=== PATIENT | male | born 1960 ===

== ENCOUNTER 2025-10-26 20:55 | Inpatient (IN) ==
[2025-10-26 21:55] LABS: HCT - HEMATOCRIT 49.8 % (42.0-52.0); HGB - HEMOGLOBIN 16.7 g/dL (14.0-18.0); MEAN PLATELET VOLUME 10.1 fL (7.4-11.4); NRBC ABSOLUTE COUNT (AUTO) 0.00 x10^3/uL; NUCLEATED RED BLOOD CELLS AUTO 0.0 /100WBC; PLT - PLATELET COUNT 186 10^3/uL (130-450); RED CELL DISTRIBUTION WIDTH 12.7 % (12.0-15.0)
[2025-10-26 22:11] LABS: ALT ALANINE AMINOTRANSFERASE 86 IU/L (10-60); AST ASPARTATE AMINOTRANSFERASE 158 IU/L (10-42); BUN - BLOOD UREA NITROGEN 13 mg/dL (6-20); CARBON DIOXIDE - CO2 25 mmol/L (21-32); CREATININE 0.9 mg/dL (0.6-1.3); GFR - MDRD 85 (>89)
[2025-10-26] MEDS: ONDANSETRON 4 MG/2 ML VIAL IVP STA (22:17)
[2025-10-26] MEDS: SODIUM CHLORIDE 0.9% 1,000 ML IV STA (22:21)
[2025-10-26] MEDS: ACETAMINOPHEN 325 MG TABLET PO STA (22:35)
--- NOTE | 2025-10-26 22:50 | ED Physician Documentation ---
History of Present Illness Stated complaint Stated Complaint: N/V/ABD PX Chief complaint Chief Complaint: General History obtained from History obtained from: Patient and Family History of Present Illness Pain level max: 10 Pain level now: 10 Additonal information Additional information: Patient is a 65-year-old male, history of diabetes, presents to the emergency department with sudden onset of epigastric abdominal pain that started at about 13:00 today, has gradually worsened throughout the day. Denies cramping, bloating, nausea, vomiting. Feels like there is a lot of pressure in his abdomen. Has not had similar symptoms previously. His only medication is metformin at home for diabetes. No abdominal surgeries. Does not smoke or drink. Nothing makes it better or worse. No alcohol. Does not smoke. No drug use. Review of Systems Constitutional Denies: Fever or Chills Cardiovascular Denies: chest pain or palpitations Respiratory Denies: Cough Meds/Allgy Allergies Allergies Allergy/AdvReac Type Severity Reaction Status Date / Time aspirin Allergy swelling Verified 10/26/25 21:03 morphine Allergy Itching Verified 10/26/25 21:03 Penicillins Allergy fever Verified 10/26/25 21:03 PFSH Active Problems All Active Problems (Updated 10/26/25 @ 23:56 by Virgilio Sanders MD) Pancreatitis (Acute) Rotator cuff tear, right (Acute) Rotator cuff tear, left (Acute) Rotator cuff impingement syndrome (Acute) Medical History Medical History (Updated 10/26/25 @ 23:56 by Virgilio Sanders MD) No pertinent past medical history Social History Social History (Updated 04/30/25 @ 10:30 by Danilo Skinner DO) Do you feel safe in your home environment?: Yes History of physical, verbal, emotional, or financial abuse?: No Exam Exam Vital Signs: Vital Signs x48h Temp Pulse Resp BP Pulse Ox 10/26/25 23:06 122 H 18 146/89 H 95 10/26/25 21:04 36.5 C 117 H 16 162/128 H 94 Constitutional normal general appearance Patient appears in pain HENMT oropharynx normal moist mucous membranes Eyes PERRL Neck/C-Spine visual inspection normal Respiratory breath sounds equal bilaterally, normal respiratory effort and clear to auscultation bilaterally Cardiovascular normal heart rate noted and regular rhythm noted Gastrointestinal abdomen normal to inspection, abdomen soft to palpation and nondistended Tender to palpation epigastric. No peritoneal signs Genitourinary no CVA tenderness Extremities no edema Neurology speech normal Psychiatry mental status grossly normal and oriented x3 Skin skin color normal Results Vitals Vitals: Vital Signs - 24 hr 10/26/25 21:04 10/26/25 22:35 10/26/25 23:01 Temperature 36.5 C Temperature Source Temporal Artery Scan Pulse Rate 117 H Respiratory Rate 16 Blood Pressure 162/128 H O2 Saturation 94 O2 Source Room air Pain Intensity 10 10 10 10/26/25 23:06 Temperature Temperature Source Pulse Rate 122 H Respiratory Rate 18 Blood Pressure 146/89 H O2 Saturation 95 O2 Source Pain Intensity Oxygen O2 Source Room air Labs Labs: Laboratory Tests 10/26/25 21:50 WBC 15.7 H RBC 5.84 Hgb 16.7 Hct 49.8 MCV 85.3 MCH 28.6 MCHC 33.5 RDW 12.7 Plt Count 186 MPV 10.1 Neut # (Auto) 12.7 H Lymph # (Auto) 1.8 [place] # (Auto) 1.1 H Eos # (Auto) 0.0 Baso # (Auto) 0.0 Absolute Nucleated RBC 0.00 Nucleated RBC % 0.0 Sodium 141 Potassium 3.5 Chloride 105 Carbon Dioxide 25 Anion Gap 11.0 BUN 13 Creatinine 0.9 Estimated GFR (MDRD) 85 L Glucose 252 H Calcium 9.4 Total Bilirubin 1.6 H AST 158 H ALT 86 H Alkaline Phosphatase 104 Total Protein 6.7 Albumin 4.7 Globulin 2.0 L Albumin/Globulin Ratio 2.4 H Lipase > 6000 H PD Medical Decision Making ED course Complexity details: reviewed results, re-evaluated patient, considered differential and d/w patient ED course: Patient with pancreatitis. Given IV fluids, Zofran, fentanyl. Ultrasound ordered. Radiology systems are down currently secondary to a power outage, IT is working on fixing this. Patient is signed out to Dr. Mcdonald for repeat evaluation, ultrasound results and likely admission to the hospital. This document was made in part using voice recognition software. While efforts are made to proofread this document, sound alike and grammatical errors may occur. Discharge Plan Discharge Clinical Impression: Pancreatitis Qualifiers: Chronicity: acute Pancreatitis type: unspecified pancreatitis type Acute pancreatitis complication: unspecified Qualified Code(s): K85.90 - Acute pancreatitis without necrosis or infection, unspecified Print Language: Panamanian Stand Alone Forms: PCP List, SBIRT
[2025-10-26] MEDS: fentaNYL 100 MCG/2 ML VIAL IVP STA (23:01)
[2025-10-27] MEDS: fentaNYL 100 MCG/2 ML VIAL IVP STA (00:07)
[2025-10-27 00:22] LABS: GLUCOSE, URINE (UA) >=1000 mg/dL (NEGATIVE); KETONES,URINE (UA) NEGATIVE (NEGATIVE); OCCULT BLOOD,URINE TRACE-INTACT (NEGATIVE)
--- NOTE | 2025-10-27 02:37 | ED Physician Documentation ---
ED Addendum Addendum Addendum: I received sign-out/turnover of care on this patient from Dr. Sanders; please see addendum for complete H&P. In brief, H&P, ROS, and test results are all indicative of idiopathic pancreatitis. Ultrasound performed during Dr. Sanders's shift was limited due to patient's body habitus and thus I ordered CT A/P with IV contrast. There was a delay in getting the CT undertaken/completed as well as obtaining radiologist's reading because of a hospital-wide power outage (which precluded ability to send images to radiologist for reading; eventually power was restored). CT read by radiologist as "extensive fat stranding surrounding duodenum consistent with duodenitis. A small focus of gas adjacent to the second portion of the duodenum could be within the distal common bile duct, although the biliary structures are otherwise unremarkable. Other possibilities include a small duodenal diverticulum and, less likely, duodenal ulcer. No evidence of perforation is suspected. Mild fat stranding surrounding the pancreatic tissue also raises the possibility of acute pancreatitis. No pseudocyst or other complication identified." Patient is given maintenance fluids on my overnight shift; I instructed him to not eat or drink anything. He required titration of IV Dilaudid for pain. I entered a [facility] tele[facility] consult request at 04:12. Not having heard from them, I reentered a [facility] tele[facility] consult request via amplify at 05:30. I still did not hear from the sound telehealth practitioner by the end of my shift and thus care patient is turned over to oncoming ED physician (Dr. Smith) who can hopefully discuss the case with the in-Hospital hospitalist when they come on after 7 AM Discharge Plan Discharge Patient Disposition: 66 [facility] DC/Xfer Condition: Stable Clinical Impression: Pancreatitis Qualifiers: Chronicity: acute Pancreatitis type: unspecified pancreatitis type Acute pancreatitis complication: unspecified Qualified Code(s): K85.90 - Acute pancreatitis without necrosis or infection, unspecified Print Language: Sierra Leonean
[2025-10-27] MEDS: SODIUM CHLORIDE 0.9% 1,000 ML IV STA (02:58)
[2025-10-27] MEDS: HYDROmorphone 1 MG/ML CARPUJECT IVP STA ×4 (02:58→10:01)
[2025-10-27 07:58] LABS: HCT - HEMATOCRIT 48.6 % (42.0-52.0); HGB - HEMOGLOBIN 15.9 g/dL (14.0-18.0); MEAN PLATELET VOLUME 9.9 fL (7.4-11.4); NRBC ABSOLUTE COUNT (AUTO) 0.00 x10^3/uL; NUCLEATED RED BLOOD CELLS AUTO 0.0 /100WBC; PLT - PLATELET COUNT 158 10^3/uL (130-450); RED CELL DISTRIBUTION WIDTH 13.0 % (12.0-15.0)
[2025-10-27 08:19] LABS: ALT ALANINE AMINOTRANSFERASE 84 IU/L (10-60); AST ASPARTATE AMINOTRANSFERASE 71 IU/L (10-42); BUN - BLOOD UREA NITROGEN 11 mg/dL (6-20); CARBON DIOXIDE - CO2 28 mmol/L (21-32); CHOL/HDL RATIO 2.2 (<5.0); CREATININE 0.8 mg/dL (0.6-1.3); ETOH - ETHANOL < 10.0 mg/dL; GFR - MDRD 97 (>89); LDL/HDL RATIO 0.9 (<3.6); VLDL CHOLESTEROL 13 mg/dL
--- NOTE | 2025-10-27 09:06 | HISTORY & PHYSICAL EXAMINATION ---
Chief Complaint Chief Complaint Chief Complaint: Abdominal pain History of Present Illness Admitted From Admitted From:: Home History Obtained From Records Reviewed: EMR History obtained from: Patient Exam Limitations: None History of Present Illness HPI Comment/Other: Patient is a 65-year-old male with a history of [id number] diabetes mellitus, hypertension who presents with acute abdominal pain. Yesterday, he was at work at the [employer], when he felt a sharp abdominal pain. He had eaten out for lunch so he attributed initially to food poisoning. He described it as feeling like there was gas in his stomach, and he did his best to push it out. The abdominal pain progressed, and he went home early from work. He initially attributed to his GERD, which he has a longstanding history of, and takes omeprazole for. He drank some [place], and then gave himself an enema with minimal relief. He then progressed to having nausea and about 7 episodes of nonbilious, nonbloody emesis. This morning, the pain had worsened, so he came in. On admission, patient was hypertensive with blood pressure 162/128, he was saturating 94% on room air, respiratory rate was 16, he was tachycardic with heart rate up to 117, and afebrile at 97.5. Lab work was reviewedhe has a leukocytosis of 15.7. BMP was largely unremarkable. AST and ALT were mildly elevated yesterday, but are improved this morning 1 58-71, and 86-84 respectively. His bilirubin was elevated yesterday 1.6, and it is 0.9 today. UA was negative, ethyl alcohol level is negative. Triglycerides are within normal limit. Abdominal ultrasound showed no gallstones, but a mildly prominent common duct. In abdomen/pelvis CT showed acute pancreatitis, and duodenitis involving the 2nd and 3rd portions of the duodenum with a possible microperforation with a single locule of air present subadjacent to the second portion of the duodenum. He was admitted for the above. General surgery was consulted. Past medical history includes hypertension, diabetes, GERD. Home medications include omeprazole, Jardiance, metformin, and 2 antihypertensives that patient is unsure of. Patient is allergic to morphine, aspirin, penicillin, unclear reaction. Surgical history includes appendectomy as a child. He denies any alcohol, tobacco, recreational drug use. 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 He works in [employer] services at the [employer]. He lives with his and 2 kids. He is normally active. Patient would like to be full code, with continued aggressive medical management at this time. Meds/Allgy Home Medications Ambulatory Orders Medication Instructions Recorded Confirmed albuterol 90 mcg/actuation aerosol 90 mcg inhalation T ID-QID PRN 10/27/25 10/27/25 inhaler Asthma atorvastatin 10 mg tablet (Lipitor) 10 mg PO DAILY 10/27/25 cholecalciferol (vitamin D3) 25 25 mcg PO DAILY 10/27/25 mcg (1,000 unit) capsule empagliflozin 25 mg tablet 25 mg PO DAILY 10/27/25 lidocaine 5 % topical ointment 1 applic topical BID NC N pain 10/27/25 10/27/25 losartan 25 mg tablet 25 mg PO DAILY 10/27/2510/05 magnesium gluconate 12.5 mg 12.5 mg PO QPM PRN cramps 10/27/25 10/27/25 magnesium (250 mg) tablet meloxicam 15 mg tablet 15 mg PO DAILY 10/27/2510/05 metformin 1,000 mg tablet 1,000 mg PO BID 10/27/25 metoprolol succinate 100 mg 50 mg PO BID PRN HR<65 or BP<100 10/27/25 10/27/25 tablet,extended release 24 hr omeprazole 20 mg capsule,delayed 20 mg PO QPM 10/27/25 10/27/25 release Allergies Allergies Allergy/AdvReac Type Severity Reaction Status Date / Time aspirin Allergy swelling Verified 10/26/25 21:03 morphine Allergy Itching Verified 10/26/25 21:03 Penicillins Allergy fever Verified 10/26/25 21:03 [facility] Active Problems All Active Problems (Updated 10/27/25 @ 14:45 by Candi Flores MD) GERD (gastroesophageal reflux disease) (Acute) Leukocytosis (Acute) Acute abdominal pain (Acute) Duodenal ulcer, perforated (Acute) Duodenitis (Acute) Hx of appendectomy (Acute) Diabetes mellitus (Chronic) Hypertension (Chronic) Pancreatitis (Acute) Rotator cuff tear, right (Acute) Rotator cuff tear, left (Acute) Rotator cuff impingement syndrome (Acute) Medical History Medical History No pertinent past medical history Social History Social History Smoking Status: Former smoker If you are a former smoker, when did you quit? (Date/Year): 1996 Number of Years Smoked: 12 How many cigarettes a day do you smoke? (20 cigarettes=1 Pk): 20 Second hand tobacco smoke exposure: Yes Do you dip or chew tobacco?: No Do you vape?: No Patient requests smoking cessation consult: No Initiate information on smoking cessation: No Level: Independent Do you feel safe in your home environment?: Yes History of physical, verbal, emotional, or financial abuse?: No Substance Use: denies use POLST Patient has POLST: No POLST on file?: No POLST CPR Status: Attempt Resuscitation (CPR) Level of Medical Intervention: Full Treatment Review of Systems Constitutional Reports: Fatigue, Malaise and Weakness; Denies: Fever, Chills or Poor appetite Eyes Denies: Pain, Irritation, Blurry vision or Vision loss Ears, nose, mouth, and throat Denies: Ear pain, Hearing loss or Tinnitus Cardiovascular Denies: Irregular heart rate, chest pain, Syncope, shortness of breath with exertion or shortness of breath when lying down Respiratory Denies: Shortness of breath, Cough or Sputum production Gastrointestinal Reports: Abdominal pain, Abdominal distention, Nausea, Vomiting and Bloating; Denies: Heartburn, Diarrhea or Constipation Genitourinary Denies: Painful urination, Urinary frequency or Urinary urgency Musculoskeletal Denies: Back pain, Extremity pain, Extremity swelling or Joint pain Integumentary/Breast Denies: Rash, Itching, Dryness, Redness or Skin pain Neurological Reports: General weakness; Denies: Headache, Weakness in extremities, Numbness in extremities or Abnormal gait Psychiatric Denies: Depression, Anxiety, Mood swings or Panic attacks Endocrine Reports: Fatigue; Denies: Excessive urination Hematologic/Lymphatic Denies: Anemia, Easy bruising or Easy bleeding Allergic/Immunologic Denies: Hives Prior Level of Functionality: Independent of ADLs. Exam Exam Vital Signs: Vital Signs x48h Temp Pulse Pulse Resp BP BP Pulse Ox 10/27/25 12:34 123 H 154/88 H 10/27/25 10:15 97.5 F L 111 H 20 177/111 H 99 10/27/25 10:09 98.1 F 90 18 165/99 H 96 10/27/25 09:20 101 H 18 165/99 H 96 10/27/25 07:44 104 H 20 155/99 H 99 O2 Flow Rate 10/27/25 12:34 10/27/25 10:15 10/27/25 10:09 10/27/25 09:20 10/27/25 07:44 2 Intermittently appears in distress due to abdominal pain. Constitutional normal general appearance, distress noted (mild) and (moderate), abnormal body habitus (overweight) and no limitations HENMT normocephalic and head/scalp atraumatic Eyes PERRL, EOMs intact bilaterally and conjunctivae normal Chest inspection of chest normal Respiratory breath sounds equal bilaterally, normal respiratory effort, clear to auscultation bilaterally, no wheezes, no rales and no retractions Cardiovascular heart rate abnormal (tachycardic), regular rhythm noted, no gallop, no rub and no murmur Gastrointestinal abdomen abnormal to inspection (Protuberant ), abdomen soft to palpation, tender to palpation (moderate) and (epigastric), abnormal bowel sounds noted (hyperactive bowel sounds), no hepatosplenomegaly and no masses No rebound tenderness, no guarding or rigidity. Genitourinary no CVA tenderness Back/Pelvis spine normal to inspection Extremities normal to inspection, normal to palpation, no tenderness and full ROM Neurology no movement abnormality noted and no focal motor deficit noted Psychiatry mental status grossly normal, oriented x3, thought process normal, cooperative and affect normal Skin skin color normal, no rash, no lesions and no wounds Conclusion/Plan Problem List (1) Acute abdominal pain: (2) Duodenitis: (3) Duodenal ulcer, perforated: (4) Pancreatitis: Plan: The following plan is for the above 4 diagnoses: Patient presents with acute abdominal pain. Describes it as severe, epigastric with associated nausea and vomiting. He gave himself an enema, and had small bowel movement yesterday. Last passed gas yesterday as well. CT abdomen/pelvis shows duodenitis involving the 2nd and 3rd portions of duodenum, as well as a possible microperforation, as well as changes of acute pancreatitis. Unclear reason for pancreatitis. Patient does not drink, no gallstones visible on abdominal ultrasound although there is a slight dilation in the common bile duct. Bilirubin negative, and LFTs have been downtrending. Triglycerides normal. No new medications. Likely iatrogenic. Continue aggressive IV fluid rehydration. Pain control with IV Dilaudid. General surgery consulted for microperforation, discussed patient, they will evaluate; appreciate recommendations. Qualifiers: Acute pancreatitis complication: unspecified Chronicity: acute P ancreatitis type: unspecified pancreatitis type Qualified Code(s): K85.90 - Acute pancreatitis without necrosis or infection, unspecified (5) Leukocytosis: Plan: Likely reactive to above. Continue Rocephin and Flagyl at this time for perforated ulcer. Blood cultures ordered. Qualifiers: Leukocytosis type: unspecified Qualified Code(s): D72.829 - Elevated white blood cell count, unspecified (6) Diabetes mellitus: Plan: Continue low-dose sliding scale, n.p.o. status. Qualifiers: Diabetes mellitus complication status: without complication Diabetes mellitus detention insulin use: without detention use Diabetes mellitus type: o ther specified (including KWADWO) Qualified Code(s): E13.9 - Other specified diabetes mellitus without complications (7) Hypertension: Plan: Continue to monitor. Qualifiers: Hypertension type: unspecified Qualified Code(s): I10 - Essential (primary) hypertension (8) GERD (gastroesophageal reflux disease): Plan: Longstanding history of GERD, currently on omeprazole. States he had a EGD about 10 years ago, unsure of what the results were. Qualifiers: Esophagitis presence: esophagitis presence not specified Qualified Code(s): K21.9 - Gastro-esophageal reflux disease without esophagitis Lab Results Lab results reviewed: Yes 10/27/25 07:51 10/27/25 07:51 Diagnostic Imaging Results Diagnostic Imaging Results: positive Final report reviewed Core Measures Anticipated LOS I expect patient to be DC'd or transferred within 96 hours.: Yes DVT/VTE - Prophylaxis VTE/DVT Device ordered at admit?: No VTE/DVT Prophylaxis med ordered at admit?: Yes Stroke - Rehab Assessment Rehab services assessment to be ordered?: No Not Ordered - Medical Reason: Not indicated AMI - Statin at Admit Aspirin Prescribed on Admit: No Not Ordered - Medical Reason: Not indicated
[2025-10-27] MEDS: LACTATED RINGERS 1,000 ML IV STA (09:15)
--- NOTE | 2025-10-27 09:28 | Ultrasound Report ---
PROCEDURE: US Abdomen Limited INDICATIONS: pancreatitis TECHNIQUE: Real-time focused scanning was performed of the abdomen, with image documentation. COMPARISONS: None. FINDINGS: Liver: Liver is normal in size and somewhat coarsened in echotexture. Gallbladder: No gallstones, sludge, wall thickening or pericholecystic edema. Biliary ducts: Intrahepatic bile ducts are non-dilated. Extrahepatic bile duct caliber measures 8.4 mm. Normal is 6-7 mm or less in diameter, or 10 mm or less post-cholecystectomy. Pancreas: Not well visualized due to overlying bowel gas. Right kidney: Normal in size and echotexture. Right kidney measures 10.5 cm long. No hydronephrosis or nephrolithiasis. No solid masses. No complex renal cystic lesions which require follow-up. IVC: Intrahepatic inferior vena cava is patent. Miscellaneous: No free abdominal fluid. IMPRESSION: 1. No gallstones noted. 2. Mildly prominent common duct. Reviewed by: Rios Marmolejo MD on 10/27/2025 9:25 AM PST Approved by: Rios Marmolejo MD on 10/27/2025 9:25 AM PST Station ID: [id number]
--- NOTE | 2025-10-27 09:41 | CT Report ---
PROCEDURE: CT Abdomen/Pelvis W INDICATIONS: suspect pancreatitis CONTRAST: 100cc [id number] TECHNIQUE: After the administration of intravenous contrast, a CT scan of the abdomen and pelvis was performed. Images were recorded and evaluated at appropriate window settings. Reformats: coronal and sagittal. For radiation dose reduction, the following was used: automated exposure control, adjustment of mA and/or kV according to patient size. COMPARISON: None. FINDINGS: Image quality: Diagnostic. Lower chest: Unremarkable. Liver: No solid mass. Gallbladder: No radiopaque stones or wall thickening. Biliary tree: No intrahepatic or extrahepatic dilation, accounting for age. Spleen: No splenomegaly. Pancreas: Peripancreatic stranding in the adjacent fat with mild edematous change of the pancreas consistent with acute pancreatitis. No pancreatic necrosis identified.. Adrenals: No adrenal nodule. Kidneys and ureters: No hydronephrosis. No renal cystic lesion which requires follow up. No solid mass. Stomach, bowel and peritoneum: No gastric dilatation. There is inflammatory change involving the second portion of the duodenum as well as the third portion of the duodenum. This may be secondary to acute pancreatitis. There is a locule of air present outside of the second portion of the duodenum in the region of the uncinate process of the pancreas. It appears to be adjacent to, but not in the common duct. Consider microperforation small bowel otherwise unremarkable mild diverticulosis. No acute diverticulitis. Normal appendix.. No pathologic free fluid. Lymph nodes: No central or retroperitoneal adenopathy. Vessels: No infrarenal aortic aneurysm. Patent portal vein. PELVIS Reproductive organs: Unremarkable. Bladder: No abnormal wall thickening. Pelvic lymph nodes: No pelvic adenopathy by size criteria. Bones: No aggressive osseous abnormality. Other: No significant ventral or inguinal hernia. IMPRESSION: 1. Mild changes of acute pancreatitis. 2. Duodenitis involving the second and third portions of the duodenum, potentially secondary to pancreatitis. 3. Possible microperforation with a single locule of air present subjacent to the second portion of the duodenum in the region of the uncinate process of the pancreas. Comment: Consider follow-up studies based on future symptomatology. Findings are concordant with preliminary interpretation provided by [facility]. Reviewed by: Rios Marmolejo MD on 10/27/2025 9:37 AM PST Approved by: Rios Marmolejo MD on 10/27/2025 9:37 AM PST Station ID: [id number]
[2025-10-27] MEDS ORDERED: ONDANSETRON ODT 4 MG TABLET TL PRN (10:25)
[2025-10-27] MEDS: HYDROmorphone 0.5 MG/0.5 ML SYRINGE IVP PRN (10:35)
[2025-10-27] MEDS: HYDROcod/ACETAM 5/325 MG TABLET PO PRN (10:36)
[2025-10-27] MEDS: HYDROmorphone 2 MG/ML VIAL IVP PRN (11:17)
[2025-10-27] MEDS: PANTOPRAZOLE 40 MG VIAL IVP SCH (12:22)
[2025-10-27] MEDS: INSULIN REGULAR, HUMAN 300 UNIT/3 ML PEN SUBQ SCH (12:34)
[2025-10-27] MEDS: SIMETHICONE CHEW 80 MG TABLET PO PRN (12:38)
[2025-10-27] MEDS: INSULIN LISPRO 300 UNIT/3 ML PEN SUBQ SCH (13:33)
[2025-10-27] MEDS: LACTATED RINGERS 1,000 ML IV SCH (13:35)
[2025-10-27] MEDS ORDERED: IPRATROPIUM/ALBUTEROL 3 ML NEB INH PRN (16:28)
[2025-10-27] MEDS ORDERED: HYDROmorphone 2 MG/ML VIAL IVP PRN (16:29)
--- NOTE | 2025-10-27 16:56 | XRAY Report ---
PROCEDURE: XR Chest 1V INDICATIONS: ASIYA, hypoxia TECHNIQUE: One view of the chest was acquired. COMPARISON: CT abdomen pelvis on 10/27/2025 FINDINGS: Surgical changes and devices: None. Lungs and pleura: Bilateral diffuse airspace opacities. No pneumothorax. Trace bilateral pleural effusions Mediastinum: Mildly enlarged mediastinal silhouette with opacities partially scaring the mediastinal borders. Bones and chest wall: No suspicious bony lesions. Overlying soft tissues appear unremarkable. IMPRESSION: Bilateral diffuse airspace opacities with trace bilateral pleural effusions. Findings are concerning for pulmonary edema versus multifocal pneumonia. Reviewed by: Chance Polanco MD on 10/27/2025 4:53 PM PST Approved by: Chance Polanco MD on 10/27/2025 4:53 PM PST Station ID: [id number]
--- NOTE | 2025-10-27 17:14 | CONSULTATION NOTE ---
Referring Provider Name of Referring Provider:: Dr. Candi Flores Consult Date: 10/27/25 Chief Complaint Chief Complaint Chief Complaint: Pancreatitis with questionable duodenal perforation History of Present Illness Admitted From Admitted From:: Home History Obtained From Records Reviewed: Yes History obtained from: Patient and chart Exam Limitations: Patient's somnolence History of Present Illness HPI Comment/Other: The patient is a 65-year-old male evaluated in room 2204 at [facility]'s MedSurg unit at the request of Dr. Candi Flores. 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 The pain was associated with nausea and vomiting but not with constipation or diarrhea. The patient denies melena, hematochezia, or hematemesis. Importantly, the patient stopped drinking alcohol 35 years ago. The patient states that he has never had this pain previously. When he did vomit it was the lunch that he had which was a ham and cheese omelette. [facility] Active Problems All Active Problems (Updated 10/27/25 @ 14:45 by Candi Flores MD) GERD (gastroesophageal reflux disease) (Acute) Leukocytosis (Acute) Acute abdominal pain (Acute) Duodenal ulcer, perforated (Acute) Duodenitis (Acute) Hx of appendectomy (Acute) Diabetes mellitus (Chronic) Hypertension (Chronic) Pancreatitis (Acute) Rotator cuff tear, right (Acute) Rotator cuff tear, left (Acute) Rotator cuff impingement syndrome (Acute) Medical History Medical History No pertinent past medical history Social History Social History (Updated 10/27/25 @ 14:46 by Candi Flores MD) Smoking Status: Former smoker If you are a former smoker, when did you quit? (Date/Year): 1996 Number of Years Smoked: 12 How many cigarettes a day do you smoke? (20 cigarettes=1 Pk): 20 Second hand tobacco smoke exposure: Yes Do you dip or chew tobacco?: No Do you vape?: No Patient requests smoking cessation consult: No Initiate information on smoking cessation: No Level: Independent Do you feel safe in your home environment?: Yes History of physical, verbal, emotional, or financial abuse?: No Substance Use: denies use POLST Patient has POLST: No POLST on file?: No POLST CPR Status: Attempt Resuscitation (CPR) Level of Medical Intervention: Full Treatment Meds/Allgy Home Medications Ambulatory Orders Medication Instructions Recorded Confirmed albuterol 90 mcg/actuation aerosol 90 mcg inhalation T ID-QID PRN 10/27/25 10/27/25 inhaler Asthma atorvastatin 10 mg tablet (Lipitor) 10 mg PO DAILY 10/27/25 cholecalciferol (vitamin D3) 25 25 mcg PO DAILY 10/27/25 mcg (1,000 unit) capsule empagliflozin 25 mg tablet 25 mg PO DAILY 10/27/25 lidocaine 5 % topical ointment 1 applic topical BID DE N pain 10/27/25 10/27/25 losartan 25 mg tablet 25 mg PO DAILY 10/27/2510/05 magnesium gluconate 12.5 mg 12.5 mg PO QPM PRN cramps 10/27/25 10/27/25 magnesium (250 mg) tablet meloxicam 15 mg tablet 15 mg PO DAILY 10/27/2510/05 metformin 1,000 mg tablet 1,000 mg PO BID 10/27/25 metoprolol succinate 100 mg 50 mg PO BID PRN HR<65 or BP<100 10/27/25 10/27/25 tablet,extended release 24 hr omeprazole 20 mg capsule,delayed 20 mg PO QPM 10/27/25 10/27/25 release Allergies Allergies Allergy/AdvReac Type Severity Reaction Status Date / Time aspirin Allergy swelling Verified 10/26/25 21:03 morphine Allergy Itching Verified 10/26/25 21:03 Penicillins Allergy fever Verified 10/26/25 21:03 Results Lab Results Lab results reviewed: Yes 10/27/25 07:51 10/27/25 07:51 Other Lab Results: Lab Results x24hrs 10/27/25 10/27/25 10/27/25 Range/Units 12:32 07:51 00:11 WBC 15.7 H (4.8-10.8) x10^3/uL RBC 5.58 (4.70-6.10) 10^6/uL Hgb 15.9 (14.0-18.0) g/dL Hct 48.6 (42.0-52.0) % MCV 87.1 (80.0-94.0) fL MCH 28.5 (27.0-31.0) pg MCHC 32.7 (32.0-36.0) g/dL RDW 13.0 (12.0-15.0) % Plt Count 158 (130-450) 10^3/uL MPV 9.9 (7.4-11.4) fL Neut # (Auto) 13.2 H (1.5-6.6) 10^3/uL Lymph # (Auto) 1.1 L (1.5-3.5) 10^3/uL Jefferson # (Auto) 1.2 H (0.0-1.0) 10^3/uL Eos # (Auto) 0.0 (0.0-0.7) 10^3/uL Baso # (Auto) 0.0 (0.0-0.1) 10^3/uL Absolute Nucleated RBC 0.00 x10^3/uL Nucleated RBC % 0.0 /100WBC Sodium 143 (135-145) mmol/L Potassium 4.1 (3.5-4.5) mmol/L Chloride 106 (101-111) mmol/L Carbon Dioxide 28 (21-32) mmol/L Anion Gap 9.0 (6-13) BUN 11 (6-20) mg/dL Creatinine 0.8 (0.6-1.3) mg/dL Estimated GFR (MDRD) 97 (>89) Glucose 174 H (74-104) mg/dL POC Whole Bld Glucose 141 (70-100) mg/dL Calcium 8.7 (8.5-10.3) mg/dL Total Bilirubin 0.9 (0.2-1.0) mg/dL AST 71 H (10-42) IU/L ALT 84 H (10-60) IU/L Alkaline Phosphatase 81 (42-121) IU/L Total Protein 6.4 (6.4-8.9) g/dL Albumin 4.4 (3.2-5.5) g/dL Globulin 2.0 L (2.1-4.2) g/dL Albumin/Globulin Ratio 2.2 (1.0-2.2) Triglycerides 66 mg/dL Cholesterol 99 ( - 200) mg/dL LDL Cholesterol, Calc 41 ( - 129) mg/dL VLDL Cholesterol 13 mg/dL HDL Cholesterol 45 L (60 - ) mg/dL LDL/HDL Ratio 0.9 (<3.6) Cholesterol/HDL Ratio 2.2 (<5.0) Lipase 2647 H (11-82) U/L Urine Color YELLOW Urine Clarity CLEAR (CLEAR) Urine pH 5.5 (5.0-7.5) PH Ur Specific [place] 1.010 (1.002-1.030) Urine Protein NEGATIVE (NEGATIVE) mg/dL Urine Glucose (UA) >=1000 H (NEGATIVE) mg/dL Urine Ketones NEGATIVE (NEGATIVE) mg/dL Urine Occult Blood TRACE-INTACT (NEGATIVE) Urine Nitrite NEGATIVE (NEGATIVE) Urine Bilirubin NEGATIVE (NEGATIVE) Urine Urobilinogen 0.2 (NORMAL) (NORMAL) E.U./dL Ur Leukocyte Esterase NEGATIVE (NEGATIVE) Ur Microscopic Review NOT INDICATED Urine Culture Comments NOT INDICATED Ethyl Alcohol < 10.0 mg/dL 10/26/25 Range/Units 21:50 WBC 15.7 H (4.8-10.8) x10^3/uL RBC 5.84 (4.70-6.10) 10^6/uL Hgb 16.7 (14.0-18.0) g/dL Hct 49.8 (42.0-52.0) % MCV 85.3 (80.0-94.0) fL MCH 28.6 (27.0-31.0) pg MCHC 33.5 (32.0-36.0) g/dL RDW 12.7 (12.0-15.0) % Plt Count 186 (130-450) 10^3/uL MPV 10.1 (7.4-11.4) fL Neut # (Auto) 12.7 H (1.5-6.6) 10^3/uL Lymph # (Auto) 1.8 (1.5-3.5) 10^3/uL [place] # (Auto) 1.1 H (0.0-1.0) 10^3/uL Eos # (Auto) 0.0 (0.0-0.7) 10^3/uL Baso # (Auto) 0.0 (0.0-0.1) 10^3/uL Absolute Nucleated RBC 0.00 x10^3/uL Nucleated RBC % 0.0 /100WBC Sodium 141 (135-145) mmol/L Potassium 3.5 (3.5-4.5) mmol/L Chloride 105 (101-111) mmol/L Carbon Dioxide 25 (21-32) mmol/L Anion Gap 11.0 (6-13) BUN 13 (6-20) mg/dL Creatinine 0.9 (0.6-1.3) mg/dL Estimated GFR (MDRD) 85 L (>89) Glucose 252 H (74-104) mg/dL POC Whole Bld Glucose (70-100) mg/dL Calcium 9.4 (8.5-10.3) mg/dL Total Bilirubin 1.6 H (0.2-1.0) mg/dL AST 158 H (10-42) IU/L ALT 86 H (10-60) IU/L Alkaline Phosphatase 104 (42-121) IU/L Total Protein 6.7 (6.4-8.9) g/dL Albumin 4.7 (3.2-5.5) g/dL Globulin 2.0 L (2.1-4.2) g/dL Albumin/Globulin Ratio 2.4 H (1.0-2.2) Triglycerides mg/dL Cholesterol ( - 200) mg/dL LDL Cholesterol, Calc ( - 129) mg/dL VLDL Cholesterol mg/dL HDL Cholesterol (60 - ) mg/dL LDL/HDL Ratio (<3.6) Cholesterol/HDL Ratio (<5.0) Lipase > 6000 H (11-82) U/L Urine Color Urine Clarity (CLEAR) Urine pH (5.0-7.5) PH Ur Specific [place] (1.002-1.030) Urine Protein (NEGATIVE) mg/dL Urine Glucose (UA) (NEGATIVE) mg/dL Urine Ketones (NEGATIVE) mg/dL Urine Occult Blood (NEGATIVE) Urine Nitrite (NEGATIVE) Urine Bilirubin (NEGATIVE) Urine Urobilinogen (NORMAL) E.U./dL Ur Leukocyte Esterase (NEGATIVE) Ur Microscopic Review Urine Culture Comments Ethyl Alcohol mg/dL Diagnostic Imaging Results Diagnostic Imaging Results: positive Final report reviewed and Read independently Review of Systems Status of ROS: 10 or more systems reviewed and unremarkable except as noted in history and below Exam Exam Vital Signs: Vital Signs x48h Temp Pulse Pulse Resp BP BP Pulse Ox 10/27/25 16:18 20 92 10/27/25 16:12 36.5 C 123 H 18 137/82 H 81 L 10/27/25 12:34 123 H 154/88 H 10/27/25 10:15 36.4 C L 111 H 20 177/111 H 99 10/27/25 10:09 36.7 C 90 18 165/99 H 96 10/27/25 09:20 101 H 18 165/99 H 96 O2 Flow Rate 10/27/25 16:18 3 10/27/25 16:12 10/27/25 12:34 10/27/25 10:15 10/27/25 10:09 10/27/25 09:20 General: 65-year old male, appears stated age, well developed, well nourished, quite somnolent and admits to being sleepy HEENT: Normocephalic, atraumatic, extraocular movement intact, mucous membranes pink and moist, sclera anicteric and not injected, tongue midline, Mallampati 1, junior and mustache Neck: Supple without pain on palpation, mass or bruit Cardiac: Regular rate and rhythm but tachycardic to 130 without rub, gallop, or murmur Chest: Clear to auscultation bilaterally anterolaterally Abdomen: Soft, protuberant, with positive bowel sounds, I could not appreciate any hepatosplenomegaly due to the protuberance. 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 Gait: Did not evaluate as I did not have the patient get out of bed Psychiatric: Alert and oriented to person place and time, asks and answers questions appropriately, mood and affect appropriate Conclusion/Plan Problem List (1) Acute abdominal pain: (2) Duodenitis: (3) Duodenal ulcer, perforated: (4) Pancreatitis: Qualifiers: Acute pancreatitis complication: unspecified Chronicity: acute P ancreatitis type: unspecified pancreatitis type Qualified Code(s): K85.90 - Acute pancreatitis without necrosis or infection, unspecified (5) Leukocytosis: Qualifiers: Leukocytosis type: unspecified Qualified Code(s): D72.829 - Elevated white blood cell count, unspecified (6) Diabetes mellitus: Qualifiers: Diabetes mellitus type: other specified (including KWADWO) Diabetes mellitus mcfp insulin use: without exterminator helper use Diabetes mellitus complication status: without complication Qualified Code(s): E13.9 - Other specified diabetes mellitus without complications (7) Hypertension: Qualifiers: Hypertension type: unspecified Qualified Code(s): I10 - Essential (primary) hypertension (8) GERD (gastroesophageal reflux disease): Qualifiers: Esophagitis presence: esophagitis presence not specified Qualified Code(s): K21.9 - Gastro-esophageal reflux disease without esophagitis Plan The patient's abdominal pain is undoubtedly due to pancreatitis. The etiology of the pancreatitis is a bit obscure as the patient is not drinking alcohol and there is no evidence that the patient has cholelithiasis or choledocholithiasis. Medications that may cause pancreatitis include diuretics (thiazides and furosemide), immunosuppressants, antimicrobials (sulfonamides, tetracycline, and metronidazole), HIV drugs, and some blood pressure meds (WILMER inhibitors and statins). Several of his medications including his Lipitor and Jardiance can be causing his pancreatitis. I have reviewed his radiographic studies and I think that the possible perforation that is mentioned is just that possible but not probable. I believe this represents a forme fruste type of perforation if it is any perforation at all. The patient's lipase is resolving. I do believe it we will need to chart a course between adequate fluid hydration and fluid overload. The patient states that he is quite thirsty and has received significant fluids however his chest x-ray shows fluffy infiltrates. As long as patient continues to chart a improving clinical course I do not believe that any surgical intervention will be necessary. I will continue to follow just in case. I like to thank Dr. Flores very much for this opportunity to participate in his very pleasant patient's case. CPT 80661 Lab Results Lab results reviewed: Yes 10/27/25 07:51 10/27/25 07:51 Diagnostic Imaging Results Diagnostic Imaging Results: positive Final report reviewed and Read independently
[2025-10-27] MEDS: SODIUM CHLORIDE FLUSH 0.9% 10 ML SYRINGE IVP SCH (17:15)
[2025-10-27] MEDS: FUROSEMIDE 40 MG/4 ML VIAL IVP STA (17:15)
[2025-10-27] MEDS: METOPROLOL 5 MG/5 ML VIAL IVP SCH (18:38)
[2025-10-28] MEDS: ACETAMINOPHEN 325 MG TABLET PO PRN (00:01)
[2025-10-28] MEDS: HYDROmorphone 1 MG/ML CARPUJECT IVP PRN (00:05)
--- NOTE | 2025-10-28 05:59 | PHARMACY PROGRESS NOTE ---
Best Possible Medication History Admit Date and Time: 10/27/25 [id number] Home Medications Medication Instructions Recorded Confirmed Type albuterol 90 mcg/actuation aerosol 90 mcg inhalation T ID-QID PRN 10/27/25 10/27/25 History inhaler Asthma atorvastatin 10 mg tablet (Lipitor) 10 mg PO DAILY 10/27/25 History cholecalciferol (vitamin D3) 25 25 mcg PO DAILY 10/27/25 History mcg (1,000 unit) capsule empagliflozin 25 mg tablet 25 mg PO DAILY 10/27/25 History lidocaine 5 % topical ointment 1 applic topical BID WA N pain 10/27/25 10/27/25 History losartan 25 mg tablet 25 mg PO DAILY 10/27/2510/05 History magnesium gluconate 12.5 mg 12.5 mg PO QPM PRN cramps 10/27/25 10/27/25 History magnesium (250 mg) tablet meloxicam 15 mg tablet 15 mg PO DAILY 10/27/2510/05 History metformin 1,000 mg tablet 1,000 mg PO BID 10/27/25 History metoprolol succinate 100 mg 50 mg PO BID PRN HR<65 or BP<100 10/27/25 10/27/25 History tablet,extended release 24 hr omeprazole 20 mg capsule,delayed 20 mg PO QPM 10/27/25 10/27/25 History release Processed by: Pharmacy Medications reviewed in ED?: No Medication History completed: Yes Patient Interview: Completed Secondary Source(s): Physician records and Pharmacy records [facility] Statement: As the person ultimately responsible for medication therapy, providers are able to order a medication from an existing home medication list in [facility] via the "Reconcile Routine" prior to Confirmation of that medication by product support analyst. Such practice is discouraged except when the physician, in their clinical judgment, deems that a medical need exists for a medication without regard to previous use.
[2025-10-28 06:03] LABS: HCT - HEMATOCRIT 48.1 % (42.0-52.0); HGB - HEMOGLOBIN 15.4 g/dL (14.0-18.0); MEAN PLATELET VOLUME 10.6 fL (7.4-11.4); PLT - PLATELET COUNT 143.0 10^3/uL (130-450); RED CELL DISTRIBUTION WIDTH 13.2 % (12.0-15.0)
[2025-10-28 06:18] LABS: ALT ALANINE AMINOTRANSFERASE 53.0 IU/L (10-60); AST ASPARTATE AMINOTRANSFERASE 28.0 IU/L (10-42); BUN - BLOOD UREA NITROGEN 11.0 mg/dL (6-20); CARBON DIOXIDE - CO2 29.0 mmol/L (21-32); CREATININE 0.9 mg/dL (0.6-1.3); GFR - MDRD 85.0 (>89)
--- NOTE | 2025-10-28 07:18 | XRAY Report ---
PROCEDURE: XR Chest 1V INDICATIONS: ASIYA TECHNIQUE: One view of the chest was acquired. COMPARISON: 10/27/2025 FINDINGS: Surgical changes and devices: None. Lungs and pleura: An incomplete inspiratory result is noted, with low lung volumes and crowding of the vascular markings. Streaky opacities can be seen within the mid and lower lungs. No large pneumothorax or large pleural effusion can be seen. There is mildly improved aeration compared to the prior. Mediastinum: Mediastinal contours appear normal. Heart size is normal. Bones and chest wall: No suspicious bony lesions. Overlying soft tissues appear unremarkable. IMPRESSION: Mildly improved aeration compared to the prior. Low lung volumes with streaky opacities seen within the mid and lower lungs. Reviewed by: Kirill Schwartz MD on 10/28/2025 6:15 AM [facility] Approved by: Kirill Schwartz MD on 10/28/2025 6:15 AM [facility] Station ID: [id number]
[2025-10-28] MEDS: ENOXAPARIN 40 MG/0.4 ML SYRINGE SUBQ SCH (08:17)
[2025-10-28] MEDS: FUROSEMIDE 20 MG/2 ML VIAL IVP SCH (08:17)
--- NOTE | 2025-10-28 08:46 | PROVIDER PROGRESS NOTE ---
Subjective Subjective Subjective: This morning, patient states he is feeling much better. His abdominal pain is improved. He is not feeling dyspneic or short of breath. He used the incentive spirometer all night. He does not feel nauseous and has not been throwing up. Current Medications Current Medications Current Medications: Current Medications Generic Name Dose Route Start Last Admin Trade Name Freq PRN Reason Stop Dose Admin Acetaminophen 650 mg 10/27/25 10:25 10/28/25 00:01 Acetaminophen 325 Mg Tablet PO 650 mg Q4HR PRN Administration Pain 1 to 4, or Fever Hydrocodone Bitart/Acetaminophen 1 tab 10/27/25 10:25 10/27/25 20:13 Hydrocod/Acetam 5/325 Mg Tablet PO 1 tab Q4HR PRN Administration Pain 5 to 7 Albuterol/Ipratropium 3 ml 10/27/25 16:28 Ipratropium/Albuterol 3 Ml Neb INH RTQID PRN Shortness of Air/Wheezing Ceftriaxone Sodium 2 gm 10/27/25 12:00 10/28/25 08:17 Ceftriaxone 2 Gm Vial IVP 2 gm DAILY ELVIS Administration Enoxaparin Sodium 40 mg 10/28/25 09:00 10/28/25 08:17 Enoxaparin 40 Mg/0.4 Ml Syringe SUBQ 40 mg DAILY ELVIS Administration Furosemide 20 mg 10/28/25 08:00 10/28/25 08:17 Furosemide 20 Mg/2 Ml Vial IVP 20 mg BIDDIURETIC ELVIS Administration Hydromorphone HCl 1 mg 10/27/25 16:58 10/28/25 00:05 Hydromorphone 1 Mg/Ml Carpuject IVP 1 mg Q4H PRN Administration Pain 8 to 10 Metronidazole 500 mg in 100 mls @ 100 mls/hr 10/27/25 12:00 10/28/25 06:37 Flagyl 500 Mg/100 Ml IV Infused Q8H ELVIS Infusion Insulin Human Regular 1 - 5 unit 10/27/25 12:15 10/28/25 07:31 Insulin Regular, Human 300 Unit/3 Ml Pen SUBQ 1 unit Q6HR ELVIS Administration Protocol Metoprolol Tartrate 5 mg 10/27/25 19:00 10/28/25 05:10 Metoprolol 5 Mg/5 Ml Vial IVP 5 mg Q6HR ELVIS Administration Ondansetron HCl 4 mg 10/27/25 10:25 Ondansetron Odt 4 Mg Tablet TL Q6HR PRN Nausea / Vomiting Pantoprazole Sodium 40 mg 10/27/25 12:00 10/28/25 07:34 Pantoprazole 40 Mg Vial IVP 40 mg QDAC ELVIS Administration Simethicone 80 mg 10/27/25 12:27 10/28/25 02:05 Simethicone Chew 80 Mg Tablet PO 80 mg 0900,1300,1800,2100 PRN Administration gas discomfort Sodium Chloride 10 ml 10/27/25 10:25 Sodium Chloride Flush 0.9% 10 Ml Syringe IVP PRN PRN NEEDED PER PROVIDER ORDERS Sodium Chloride 10 ml 10/27/25 17:00 10/28/25 08:17 Sodium Chloride Flush 0.9% 10 Ml Syringe IVP 10 ml 0100,0900,1700 ELVIS Administration Objective Vital Signs/Intake & Output Reviewed Vital Signs: Yes Vital Signs: Vital Signs x48h Temp Pulse Pulse Resp BP BP Pulse Ox 10/28/25 05:10 112 H 139/88 H 10/28/25 05:00 98.6 F 107 H 16 139/88 H 95 10/28/25 00:59 109 H 20 88 L 10/28/25 00:56 98.6 F 115 H 20 136/89 H 93 O2 Flow Rate 10/28/25 05:10 10/28/25 05:00 2 10/28/25 00:59 0 10/28/25 00:56 4 Intake & Output: Intake & Output 10/25/25 10/26/25 10/27/25 10/28/25 23:59 23:59 23:59 23:59 Intake Total 3542 / 3542 160 / 160 Output Total 1825 / 1825 650 / 650 Balance 1717 / 1717 -490 / -490 Weight (kg) 100.698 kg 101.5 kg Objective Comments/Other: Walking the hallways comfortably. No respiratory distress. Constitutional normal general appearance, abnormal body habitus (overweight) and no limitations HENMT normocephalic and head/scalp atraumatic Eyes PERRL, EOMs intact bilaterally and conjunctivae normal Chest inspection of chest normal Respiratory breath sounds equal bilaterally, normal respiratory effort, mild fine bibasilar crackles noted, but otherwise good air movement bilaterally Cardiovascular heart rate abnormal (tachycardic), regular rhythm noted, no gallop, no rub and no murmur Gastrointestinal abdomen abnormal to inspection (Protuberant ), abdomen soft to palpation, tender to palpation (mild) and (epigastric), abnormal bowel sounds noted (hypoactive bowel sounds), no hepatosplenomegaly and no masses, no rebound tenderness, no guarding or rigidity. Genitourinary no CVA tenderness Back/Pelvis spine normal to inspection Extremities normal to inspection, normal to palpation, no tenderness and full ROM Neurology no movement abnormality noted and no focal motor deficit noted Psychiatry mental status grossly normal, oriented x3, thought process normal, cooperative and affect normal Skin skin color normal, no rash, no lesions and no wounds Lab Results 10/28/25 05:16 10/28/25 05:16 Other Labs: Lab Results x24hrs 10/28/25 10/28/25 10/28/25 Range/Units 06:07 05:16 00:06 WBC 13.7 H (4.8-10.8) x10^3/uL RBC 5.39 (4.70-6.10) 10^6/uL Hgb 15.4 (14.0-18.0) g/dL Hct 48.1 (42.0-52.0) % MCV 89.2 (80.0-94.0) fL MCH 28.6 (27.0-31.0) pg MCHC 32.0 (32.0-36.0) g/dL RDW 13.2 (12.0-15.0) % Plt Count 143 (130-450) 10^3/uL MPV 10.6 (7.4-11.4) fL Sodium 142 (135-145) mmol/L Potassium 3.5 (3.5-4.5) mmol/L Chloride 104 (101-111) mmol/L Carbon Dioxide 29 (21-32) mmol/L Anion Gap 9.0 (6-13) BUN 11 (6-20) mg/dL Creatinine 0.9 (0.6-1.3) mg/dL Estimated GFR (MDRD) 85 L (>89) Glucose 153 H (74-104) mg/dL POC Whole Bld Glucose 155 146 (70-100) mg/dL Calcium 8.7 (8.5-10.3) mg/dL Magnesium 2.0 (1.7-2.3) mg/dL Total Bilirubin 1.2 H (0.2-1.0) mg/dL Direct Bilirubin 0.25 H (0.03-0.18) mg/dL Indirect Bilirubin 1.0 mg/dL AST 28 (10-42) IU/L ALT 53 (10-60) IU/L Alkaline Phosphatase 73 (42-121) IU/L Total Protein 6.3 L (6.4-8.9) g/dL Albumin 4.1 (3.2-5.5) g/dL Globulin 2.2 (2.1-4.2) g/dL Albumin/Globulin Ratio 1.9 (1.0-2.2) 10/27/25 10/27/25 Range/Units 17:43 12:32 WBC (4.8-10.8) x10^3/uL RBC (4.70-6.10) 10^6/uL Hgb (14.0-18.0) g/dL Hct (42.0-52.0) % MCV (80.0-94.0) fL MCH (27.0-31.0) pg MCHC (32.0-36.0) g/dL RDW (12.0-15.0) % Plt Count (130-450) 10^3/uL MPV (7.4-11.4) fL Sodium (135-145) mmol/L Potassium (3.5-4.5) mmol/L Chloride (101-111) mmol/L Carbon Dioxide (21-32) mmol/L Anion Gap (6-13) BUN (6-20) mg/dL Creatinine (0.6-1.3) mg/dL Estimated GFR (MDRD) (>89) Glucose (74-104) mg/dL POC Whole Bld Glucose 149 141 (70-100) mg/dL Calcium (8.5-10.3) mg/dL Magnesium (1.7-2.3) mg/dL Total Bilirubin (0.2-1.0) mg/dL Direct Bilirubin (0.03-0.18) mg/dL Indirect Bilirubin mg/dL AST (10-42) IU/L ALT (10-60) IU/L Alkaline Phosphatase (42-121) IU/L Total Protein (6.4-8.9) g/dL Albumin (3.2-5.5) g/dL Globulin (2.1-4.2) g/dL Albumin/Globulin Ratio (1.0-2.2) Assessment/Plan Problem List (1) Acute abdominal pain: (2) Duodenitis: (3) Duodenal ulcer, perforated: (4) Pancreatitis: Impression: The following plan is for the above 4 diagnoses: Patient presents with acute abdominal pain. Describes it as severe, epigastric with associated nausea and vomiting. Passing flatulence, last bowel movement 10/26. CT abdomen/pelvis shows duodenitis involving the 2nd and 3rd portions of duodenum, as well as a possible microperforation, and changes of acute pancreatitis. Unclear reason for pancreatitis. Patient denies alcohol use. No gallstones visible on abdominal ultrasound although there is a slight dilation in the common bile duct. Bilirubin with slight elevation, and LFTs have been downtrending. Triglycerides normal. No new medications. Idiopathic vs. medication induced vs. passed gallstone. General surgery consulted for microperforation - reviewed CT scan and examined patient, and think it may be a forme fruste type of perforation, if at all. If worsens, can consider CT with oral contrast to see for extravasation. Continue Rocephin and flagyl at this time. Advanced diet to clear liquids today. Qualifiers: Acute pancreatitis complication: unspecified Chronicity: acute P ancreatitis type: unspecified pancreatitis type Qualified Code(s): K85.90 - Acute pancreatitis without necrosis or infection, unspecified (5) Acute hypoxic respiratory failure: Impression: Likely due to fluid overload in setting of aggressive fluid resuscitation for pancreatitis. Consideration can also be made for tachyarrythmia associated fluid accumulation. Yesterday evening, patient was found to be saturating 80% on room air. He was placed on oxygen, which was uptitrated to 4 L. Chest x-ray done at that time shows bilateral diffuse airspace opacities, pulmonary edema. He received 2 doses of IV Lasix, 1 yesterday evening, 1 this morning with improvement of his oxygenation. Urine output of 3L overnight. He is breathing comfortably, on room air this a.m. Currently ambulating in hallway. Repeat chest x-ray this a.m. shows mild improvement. Continue to hold IV fluids today. Encourage incentive spirometer use. Strict ins and outs. Echo has been ordered, pending. Patient does not have any underlying history of congestive heart failure. (6) Sinus tachycardia: Impression: Patient with continued sinus tachycardia. Asymptomatic. Likely multifactorial due to pain, possible volume depletion early on, and beta-waldemar withdrawal due to intractable nausea and vomiting and inability to keep medications down. Was started on IV metoprolol 5 mg every 6 hours when NPO. Improved. Switched to his home regimen of metoprolol 50 mg twice daily today. (7) Leukocytosis: Impression: Resolved. Continue Rocephin and Flagyl as above. Qualifiers: Leukocytosis type: unspecified Qualified Code(s): D72.829 - Elevated white blood cell count, unspecified (8) Diabetes mellitus: Impression: Continue low-dose sliding scale, glucose checks, hypoglycemia protocol in place. Qualifiers: Diabetes mellitus complication status: without complication Diabetes mellitus jail insulin use: without rat exterminator use Diabetes mellitus type: o ther specified (including KWADWO) Qualified Code(s): E13.9 - Other specified diabetes mellitus without complications (9) Hypertension: Impression: Continue losartan and metoprolol. Qualifiers: Hypertension type: unspecified Qualified Code(s): I10 - Essential (primary) hypertension (10) GERD (gastroesophageal reflux disease): Impression: Longstanding history of GERD, currently on omeprazole. States he had a EGD about 10 years ago, unsure of what the results were. Continue Protonix. Qualifiers: Esophagitis presence: esophagitis presence not specified Qualified Code(s): K21.9 - Gastro-esophageal reflux disease without esophagitis
[2025-10-28] MEDS ORDERED: ACETAMINOPHEN 325 MG TABLET PO PRN (09:01)
[2025-10-28 09:26] LABS: GLUCOSE, URINE (UA) 250 mg/dL (NEGATIVE); KETONES,URINE (UA) 15 mg/dL (NEGATIVE); OCCULT BLOOD,URINE TRACE-INTACT (NEGATIVE)
[2025-10-28 09:32] LABS: SQUAMOUS EPITHELIAL CELL,UR RARE Squamous (<= Few)
[2025-10-28] MEDS: METOPROLOL SUCCINATE 50 MG TABLET PO SCH (11:05)
[2025-10-28] MEDS: INSULIN LISPRO 300 UNIT/3 ML PEN SUBQ SCH (12:21)
--- NOTE | 2025-10-28 12:45 | PROVIDER PROGRESS NOTE ---
Assessment/Plan Problem List (1) Acute abdominal pain: Assessment/Plan: I am going to place the entire assessment and plan from a surgical standpoint under this listed problem. The patient is clearly markedly improved. There was no repeat lipase today but I expect that it will be markedly decreased from yesterday. There is no indication that the patient is infected. He does not have a fever. He is now normotensive. This speaks to the fact that he has decreased pain as well. There are no peritoneal findings. He is tolerating clear liquids. The likely mendez that he has an acute surgical issue is quite close to 0. From an academic standpoint his bilirubin has vacillated between normal and just above normal. I think it would be appropriate to obtain an MRCP on a nonemergent basis to determine whether or not there is pathology in the common bile duct. This certainly does not need to be performed during this hospitalization. From a surgical standpoint, I am not sure what we can offer this patient at this point in time. Should his clinical condition change I would be more than happy to reevaluate him. I appreciate the opportunity to participate in this patient's care. CPT 09471 (2) Duodenitis: (3) Duodenal ulcer, perforated: (4) Pancreatitis: Qualifiers: Acute pancreatitis complication: unspecified Chronicity: acute P ancreatitis type: unspecified pancreatitis type Qualified Code(s): K85.90 - Acute pancreatitis without necrosis or infection, unspecified (5) Acute hypoxic respiratory failure: (6) Sinus tachycardia: (7) Leukocytosis: Qualifiers: Leukocytosis type: unspecified Qualified Code(s): D72.829 - Elevated white blood cell count, unspecified (8) Diabetes mellitus: Qualifiers: Diabetes mellitus type: other specified (including KWADWO) Diabetes mellitus termite inspector insulin use: without retirement use Diabetes mellitus complication status: without complication Qualified Code(s): E13.9 - Other specified diabetes mellitus without complications (9) Hypertension: Qualifiers: Hypertension type: unspecified Qualified Code(s): I10 - Essential (primary) hypertension (10) GERD (gastroesophageal reflux disease): Qualifiers: Esophagitis presence: esophagitis presence not specified Qualified Code(s): K21.9 - Gastro-esophageal reflux disease without esophagitis Current Meds Current Meds: Current Medications Generic Name Dose Route Start Last Admin Trade Name Freq PRN Reason Stop Dose Admin Acetaminophen 650 mg 12/24/25 10:25 10/28/25 09:02 Acetaminophen 325 Mg Tablet PO 650 mg Q4HR PRN Administration Pain 1 to 4, or Fever Hydrocodone Bitart/Acetaminophen 1 tab 10/27/25 10:25 10/27/25 20:13 Hydrocod/Acetam 5/325 Mg Tablet PO 1 tab Q4HR PRN Administration Pain 5 to 7 Albuterol/Ipratropium 3 ml 10/27/25 16:28 Ipratropium/Albuterol 3 Ml Neb INH RTQID PRN Shortness of Air/Wheezing Atorvastatin Calcium 10 mg 10/29/25 09:00 Atorvastatin 10 Mg Tablet PO DAILY ELVIS Ceftriaxone Sodium 2 gm 10/27/25 12:00 10/28/25 08:17 Ceftriaxone 2 Gm Vial IVP 2 gm DAILY ELVIS Administration Enoxaparin Sodium 40 mg 10/28/25 09:00 10/28/25 08:17 Enoxaparin 40 Mg/0.4 Ml Syringe SUBQ 40 mg DAILY ELVIS Administration Hydromorphone HCl 1 mg 10/27/25 16:58 10/28/25 00:05 Hydromorphone 1 Mg/Ml Carpuject IVP 1 mg Q4H PRN Administration Pain 8 to 10 Metronidazole 500 mg in 100 mls @ 100 mls/hr 10/27/25 12:00 10/28/25 12:20 Flagyl 500 Mg/100 Ml IV 100 mls/hr Q8H ELVIS Administration Insulin Human Lispro 1 - 5 unit 10/28/25 12:00 10/28/25 12:21 Insulin Lispro 300 Unit/3 Ml Pen SUBQ 2 unit 0800,1200,1700,2100 ELVIS Administration Protocol Losartan Potassium 25 mg 10/29/25 09:00 Losartan 50 Mg Tablet PO DAILY ELVIS Metoprolol Succinate 50 mg 10/28/25 10:00 10/28/25 11:05 Metoprolol Succinate 50 Mg Tablet PO 50 mg BID ELVIS Administration Ondansetron HCl 4 mg 10/27/25 10:25 Ondansetron Odt 4 Mg Tablet TL Q6HR PRN Nausea / Vomiting Pantoprazole Sodium 40 mg 10/27/25 12:00 10/28/25 07:34 Pantoprazole 40 Mg Vial IVP 40 mg QDAC ELVIS Administration Simethicone 80 mg 10/27/25 12:27 10/28/25 02:05 Simethicone Chew 80 Mg Tablet PO 80 mg 0900,1300,1800,2100 PRN Administration gas discomfort Sodium Chloride 10 ml 10/27/25 10:25 Sodium Chloride Flush 0.9% 10 Ml Syringe IVP PRN PRN NEEDED PER PROVIDER ORDERS Sodium Chloride 10 ml 10/27/25 17:00 10/28/25 08:17 Sodium Chloride Flush 0.9% 10 Ml Syringe IVP 10 ml 0100,0900,1700 ELVIS Administration Lab Result Lab results reviewed: Yes 10/28/25 05:16 10/28/25 05:16 Additional Planning Condition/Complexity: Improved Subjective Subjective Comments/Notes: Patient states that his abdominal pain has improved markedly. He states that he is passing gas and burping and this is really helped with his abdominal pain. He is more alert today. Tolerating clear liquids. Objective Vital Signs: Vital Signs - 24 hr 10/27/25 16:12 10/27/25 16:18 10/27/25 17:16 Temperature 36.5 C Temperature Source Temporal Artery Scan Pulse Rate Pulse Rate [Brachial] 123 H Respiratory Rate 18 20 Blood Pressure Blood Pressure [Right Brachial artery] 137/82 H O2 Saturation 81 L 92 O2 Source Room air Nasal cannula If not protocol: Oxygen Flow, liters/minute 3 Sedation scale 1-Arouses easily Pain Intensity Pain Intensity [Bilateral Abdomen upper quadrant] 3 10/27/25 17:41 10/27/25 18:38 10/27/25 18:41 Temperature Temperature Source Pulse Rate 134 H Pulse Rate [Brachial] 134 H Respiratory Rate 18 Blood Pressure 135/80 H Blood Pressure [Right Brachial artery] 135/80 H O2 Saturation 92 O2 Source Nasal cannula If not protocol: Oxygen Flow, liters/minute 4 Sedation scale 0-Fully awake Pain Intensity Pain Intensity [Bilateral Abdomen upper quadrant] 10/27/25 18:46 10/27/25 18:51 10/27/25 18:56 Temperature 37.2 C Temperature Source Temporal Artery Scan Pulse Rate Pulse Rate [Brachial] 119 H 117 H 117 H Respiratory Rate 22 20 Blood Pressure Blood Pressure [Right Brachial artery] 136/80 H 134/84 H 126/84 O2 Saturation 93 94 94 O2 Source Nasal cannula Nasal cannula Nasal cannula If not protocol: Oxygen Flow, liters/minute 4 4 4 Sedation scale 1-Arouses easily 1-Arouses easily 1-Arouses easily Pain Intensity 0 0 0 Pain Intensity [Bilateral Abdomen upper quadrant] 10/27/25 19:09 10/27/25 20:13 10/27/25 20:15 Temperature Temperature Source Pulse Rate Pulse Rate [Brachial] 124 H Respiratory Rate Blood Pressure Blood Pressure [Right Brachial artery] 114/79 O2 Saturation O2 Source If not protocol: Oxygen Flow, liters/minute Sedation scale 0-Fully awake Pain Intensity 0 8 Pain Intensity [Bilateral Abdomen upper quadrant] 8 10/27/25 20:41 10/27/25 20:56 10/27/25 21:20 Temperature 36.5 C Temperature Source Temporal Artery Scan Pulse Rate Pulse Rate [Brachial] 115 H 118 H Respiratory Rate 20 Blood Pressure Blood Pressure [Right Brachial artery] 129/85 136/78 H O2 Saturation 93 O2 Source Nasal cannula If not protocol: Oxygen Flow, liters/minute 3 Sedation scale 1-Arouses easily 1-Arouses easily Pain Intensity 5 Pain Intensity [Bilateral Abdomen upper quadrant] 10/27/25 22:40 10/27/25 23:59 10/28/25 00:00 Temperature Temperature Source Pulse Rate 114 H Pulse Rate [Brachial] Respiratory Rate Blood Pressure 136/89 H Blood Pressure [Right Brachial artery] O2 Saturation O2 Source If not protocol: Oxygen Flow, liters/minute 3 Sedation scale Pain Intensity 5 Pain Intensity [Bilateral Abdomen upper quadrant] 10/28/25 00:00 10/28/25 00:01 10/28/25 00:05 Temperature Temperature Source Pulse Rate Pulse Rate [Brachial] Respiratory Rate Blood Pressure Blood Pressure [Right Brachial artery] O2 Saturation O2 Source If not protocol: Oxygen Flow, liters/minute Sedation scale Pain Intensity 6 8 Pain Intensity [Bilateral Abdomen upper quadrant] 6 10/28/25 00:56 10/28/25 00:59 10/28/25 01:01 Temperature 37.0 C Temperature Source Temporal Artery Scan Pulse Rate Pulse Rate [Brachial] 115 H 109 H Respiratory Rate 20 20 Blood Pressure Blood Pressure [Right Brachial artery] 136/89 H O2 Saturation 93 88 L O2 Source Nasal cannula Room air If not protocol: Oxygen Flow, liters/minute 4 0 Sedation scale 0-Fully awake Pain Intensity 5 4 Pain Intensity [Bilateral Abdomen upper quadrant] 10/28/25 01:01 10/28/25 04:00 10/28/25 05:00 Temperature 37.0 C Temperature Source Temporal Artery Scan Pulse Rate Pulse Rate [Brachial] 107 H Respiratory Rate 16 Blood Pressure Blood Pressure [Right Brachial artery] 139/88 H O2 Saturation 95 O2 Source Nasal cannula If not protocol: Oxygen Flow, liters/minute 2 Sedation scale 0-Fully awake Pain Intensity 4 4 Pain Intensity [Bilateral Abdomen upper quadrant] 4 10/28/25 05:10 10/28/25 07:00 10/28/25 08:00 Temperature Temperature Source Pulse Rate 112 H Pulse Rate [Brachial] Respiratory Rate Blood Pressure 139/88 H Blood Pressure [Right Brachial artery] O2 Saturation O2 Source If not protocol: Oxygen Flow, liters/minute 3 Sedation scale Pain Intensity Pain Intensity [Bilateral Abdomen upper quadrant] 5 10/28/25 09:02 10/28/25 10:05 10/28/25 12:00 Temperature Temperature Source Pulse Rate Pulse Rate [Brachial] Respiratory Rate Blood Pressure Blood Pressure [Right Brachial artery] O2 Saturation O2 Source If not protocol: Oxygen Flow, liters/minute Sedation scale Pain Intensity 5 4 Pain Intensity [Bilateral Abdomen upper quadrant] 5 10/28/25 12:00 Temperature 36.7 C Temperature Source Skin Pulse Rate Pulse Rate [Brachial] 105 H Respiratory Rate 18 Blood Pressure Blood Pressure [Right Brachial artery] 128/66 O2 Saturation 92 O2 Source Room air If not protocol: Oxygen Flow, liters/minute Sedation scale 1-Arouses easily Pain Intensity 0 Pain Intensity [Bilateral Abdomen upper quadrant] Oxygen O2 Source Room air General: 65-year old male, appears stated age, well developed, well nourished, evaluated in room 2[facility] at [facility] Med[facility] HEENT: Normocephalic, atraumatic, extraocular movement intact, mucous membranes pink and moist, sclera anicteric and not injected, tongue midline Neck: Supple Cardiac: Regular rate and rhythm without rub, gallop, or murmur Chest: Clear to auscultation bilaterally Abdomen: Soft, nontender, normoactive bowel sounds, no peritoneal findings Genitourinary: Deferred Rectal: Deferred Extremities: No gross neurovascular problem, no clubbing, cyanosis or edema, 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 I&O (Last 24 Hrs): Intake and Output Totals x24h 10/26/25 10/27/25 10/28/25 23:59 23:59 23:59 Intake Total 3542 / 3542 400 / 400 Output Total 1825 / 1825 950 / 950 Balance 1717 / 1717 -550 / -550 Results Results: Laboratory Results WBC 13.7 x10^3/uL (4.8-10.8) H 10/28/25 05:16 RBC 5.39 10^6/uL (4.70-6.10) 10/28/25 05:16 Hgb 15.4 g/dL (14.0-18.0) 10/28/25 05:16 Hct 48.1 % (42.0-52.0) 10/28/25 05:16 MCV 89.2 fL (80.0-94.0) 10/28/25 05:16 MCH 28.6 pg (27.0-31.0) 10/28/25 05:16 MCHC 32.0 g/dL (32.0-36.0) 10/28/25 05:16 RDW 13.2 % (12.0-15.0) 10/28/25 05:16 Plt Count 143 10^3/uL (130-450) 10/28/25 05:16 MPV 10.6 fL (7.4-11.4) 10/28/25 05:16 Neut # (Auto) 13.2 10^3/uL (1.5-6.6) H 10/27/25 07:51 Lymph # (Auto) 1.1 10^3/uL (1.5-3.5) L 10/27/25 07:51 [place] # (Auto) 1.2 10^3/uL (0.0-1.0) H 10/27/25 07:51 Eos # (Auto) 0.0 10^3/uL (0.0-0.7) 10/27/25 07:51 Baso # (Auto) 0.0 10^3/uL (0.0-0.1) 10/27/25 07:51 Absolute Nucleated RBC 0.00 x10^3/uL 10/27/25 07:51 Nucleated RBC % 0.0 /100WBC 10/27/25 07:51 Sodium 142 mmol/L (135-145) 10/28/25 05:16 Potassium 3.5 mmol/L (3.5-4.5) 10/28/25 05:16 Chloride 104 mmol/L (101-111) 10/28/25 05:16 Carbon Dioxide 29 mmol/L (21-32) 10/28/25 05:16 Anion Gap 9.0 (6-13) 10/28/25 05:16 BUN 11 mg/dL (6-20) 10/28/25 05:16 Creatinine 0.9 mg/dL (0.6-1.3) 10/28/25 05:16 Estimated GFR (MDRD) 85 (>89) L 10/28/25 05:16 Glucose 153 mg/dL (74-104) H 10/28/25 05:16 POC Whole Bld Glucose 199 mg/dL (70-100) 10/28/25 11:59 Calcium 8.7 mg/dL (8.5-10.3) 10/28/25 05:16 Magnesium 2.0 mg/dL (1.7-2.3) 10/28/25 05:16 Total Bilirubin 1.2 mg/dL (0.2-1.0) H 10/28/25 05:16 Direct Bilirubin 0.25 mg/dL (0.03-0.18) H 10/28/25 05:16 Indirect Bilirubin 1.0 mg/dL 10/28/25 05:16 AST 28 IU/L (10-42) 10/28/25 05:16 ALT 53 IU/L (10-60) 10/28/25 05:16 Alkaline Phosphatase 73 IU/L (42-121) 10/28/25 05:16 Total Protein 6.3 g/dL (6.4-8.9) L 10/28/25 05:16 Albumin 4.1 g/dL (3.2-5.5) 10/28/25 05:16 Globulin 2.2 g/dL (2.1-4.2) 10/28/25 05:16 Albumin/Globulin Ratio 1.9 (1.0-2.2) 10/28/25 05:16 Triglycerides 66 mg/dL 10/27/25 07:51 Cholesterol 99 mg/dL (-200) 10/27/25 07:51 LDL Cholesterol, Calc 41 mg/dL (-129) 10/27/25 07:51 VLDL Cholesterol 13 mg/dL 10/27/25 07:51 HDL Cholesterol 45 mg/dL (60-) L 10/27/25 07:51 LDL/HDL Ratio 0.9 (<3.6) 10/27/25 07:51 Cholesterol/HDL Ratio 2.2 (<5.0) 10/27/25 07:51 Lipase 2647 U/L (11-82) H 10/27/25 07:51 Urine Color YELLOW 10/28/25 09:05 Urine Clarity CLEAR (CLEAR) 10/28/25 09:05 Urine pH 6.5 PH (5.0-7.5) 10/28/25 09:05 Ur Specific [place] 1.015 (1.002-1.030) 10/28/25 09:05 Urine Protein NEGATIVE mg/dL (NEGATIVE) 10/28/25 09:05 Urine Glucose (UA) 250 mg/dL (NEGATIVE) H 10/28/25 09:05 Urine Ketones 15 mg/dL (NEGATIVE) H 10/28/25 09:05 Urine Occult Blood TRACE-INTACT (NEGATIVE) 10/28/25 09:05 Urine Nitrite NEGATIVE (NEGATIVE) 10/28/25 09:05 Urine Bilirubin NEGATIVE (NEGATIVE) 10/28/25 09:05 Urine Urobilinogen 0.2 (NORMAL) E.U./dL (NORMAL) 10/28/25 09:05 Ur Leukocyte Esterase NEGATIVE (NEGATIVE) 10/28/25 09:05 Urine RBC 0-5 /HPF (0-5) 10/28/25 09:05 Urine WBC 0-3 /HPF (0-3) 10/28/25 09:05 Ur Squamous Epith Cells RARE Squamous (<= Few) 10/28/25 09:05 Urine Bacteria Few /HPF (None Seen) 10/28/25 09:05 Ur Microscopic Review NOT INDICATED 10/27/25 00:11 Urine Culture Comments NOT INDICATED 10/27/25 00:11 Ethyl Alcohol < 10.0 mg/dL 10/27/25 07:51 Procedures Procedures: None ABX Reporting Has patient been on IV antibiotics over the past 48 hours?: Yes Current Medications Current Medications Current Medications: Current Medications Generic Name Dose Route Start Last Admin Trade Name Freq PRN Reason Stop Dose Admin Acetaminophen 650 mg 10/27/25 10:25 10/28/25 09:02 Acetaminophen 325 Mg Tablet PO 650 mg Q4HR PRN Administration Pain 1 to 4, or Fever Hydrocodone Bitart/Acetaminophen 1 tab 10/27/25 10:25 10/27/25 20:13 Hydrocod/Acetam 5/325 Mg Tablet PO 1 tab Q4HR PRN Administration Pain 5 to 7 Albuterol/Ipratropium 3 ml 10/27/25 16:28 Ipratropium/Albuterol 3 Ml Neb INH RTQID PRN Shortness of Air/Wheezing Atorvastatin Calcium 10 mg 10/29/25 09:00 Atorvastatin 10 Mg Tablet PO DAILY ELVIS Ceftriaxone Sodium 2 gm 10/27/25 12:00 10/28/25 08:17 Ceftriaxone 2 Gm Vial IVP 2 gm DAILY ELVIS Administration Enoxaparin Sodium 40 mg 10/28/25 09:00 10/28/25 08:17 Enoxaparin 40 Mg/0.4 Ml Syringe SUBQ 40 mg DAILY ELVIS Administration Hydromorphone HCl 1 mg 10/27/25 16:58 10/28/25 00:05 Hydromorphone 1 Mg/Ml Carpuject IVP 1 mg Q4H PRN Administration Pain 8 to 10 Metronidazole 500 mg in 100 mls @ 100 mls/hr 10/27/25 12:00 10/28/25 12:20 Flagyl 500 Mg/100 Ml IV 100 mls/hr Q8H ELVIS Administration Insulin Human Lispro 1 - 5 unit 10/28/25 12:00 10/28/25 12:21 Insulin Lispro 300 Unit/3 Ml Pen SUBQ 2 unit 0800,1200,1700,2100 ELVIS Administration Protocol Losartan Potassium 25 mg 10/29/25 09:00 Losartan 50 Mg Tablet PO DAILY ELVIS Metoprolol Succinate 50 mg 10/28/25 10:00 10/28/25 11:05 Metoprolol Succinate 50 Mg Tablet PO 50 mg BID ELVIS Administration Ondansetron HCl 4 mg 10/27/25 10:25 Ondansetron Odt 4 Mg Tablet TL Q6HR PRN Nausea / Vomiting Pantoprazole Sodium 40 mg 10/27/25 12:00 10/28/25 07:34 Pantoprazole 40 Mg Vial IVP 40 mg QDAC ELVIS Administration Simethicone 80 mg 10/27/25 12:27 10/28/25 02:05 Simethicone Chew 80 Mg Tablet PO 80 mg 0900,1300,1800,2100 PRN Administration gas discomfort Sodium Chloride 10 ml 10/27/25 10:25 Sodium Chloride Flush 0.9% 10 Ml Syringe IVP PRN PRN NEEDED PER PROVIDER ORDERS Sodium Chloride 10 ml 10/27/25 17:00 10/28/25 08:17 Sodium Chloride Flush 0.9% 10 Ml Syringe IVP 10 ml 0100,0900,1700 ELVIS Administration
[2025-10-28] MEDS: HYDROmorphone 0.5 MG/0.5 ML SYRINGE IVP PRN (19:11)
[2025-10-29] MEDS: SODIUM CHLORIDE FLUSH 0.9% 10 ML SYRINGE IVP PRN (01:03)
[2025-10-29 05:37] LABS: HCT - HEMATOCRIT 43.4 % (42.0-52.0); HGB - HEMOGLOBIN 14.4 g/dL (14.0-18.0); MEAN PLATELET VOLUME 10.5 fL (7.4-11.4); PLT - PLATELET COUNT 143.0 10^3/uL (130-450); RED CELL DISTRIBUTION WIDTH 12.6 % (12.0-15.0)
[2025-10-29 06:41] LABS: ALT ALANINE AMINOTRANSFERASE 31.0 IU/L (10-60); AST ASPARTATE AMINOTRANSFERASE 14.0 IU/L (10-42); BUN - BLOOD UREA NITROGEN 12.0 mg/dL (6-20); CARBON DIOXIDE - CO2 26.0 mmol/L (21-32); CREATININE 0.7 mg/dL (0.6-1.3); GFR - MDRD 113.0 (>89)
--- NOTE | 2025-10-29 07:14 | PROVIDER PROGRESS NOTE ---
Subjective Prog Note Date Prog Note Date: 10/29/25 Prog Note Time: 07:11 Subjective Subjective: Patient intervally worsened overnight. Worsened abdominal pain. Dark clarissa- colored urine. Fluids were discontinued more than 24 hours ago. He is still on room air. Sats are low normal at 92% this morning. Otherwise has remained afebrile. Blood pressure remains robust 138/83. Will repeat his lipase this morning. The remainder of his labs revealed sodium 133, potassium 3.2, chloride 98, direct bili 0.28 with normal T. bili, protein 5.7, WBC 14.4 (stable). Will resume his fluids and conservative measures per waterfall trial, 1.5 cc/kg. Carefully monitor, may concomitantly diurese. Will repeat his lipase this morning. Current Medications Current Medications Current Medications: Current Medications Generic Name Dose Route Start Last Admin Trade Name Freq PRN Reason Stop Dose Admin Acetaminophen 650 mg 10/27/25 10:25 10/28/25 20:26 Acetaminophen 325 Mg Tablet PO 650 mg Q4HR PRN Administration Pain 1 to 4, or Fever Hydrocodone Bitart/Acetaminophen 1 tab 10/27/25 10:25 10/29/25 03:44 Hydrocod/Acetam 5/325 Mg Tablet PO 1 tab Q4HR PRN Administration Pain 5 to 7 Albuterol/Ipratropium 3 ml 10/27/25 16:28 Ipratropium/Albuterol 3 Ml Neb INH RTQID PRN Shortness of Air/Wheezing Atorvastatin Calcium 10 mg 10/29/25 09:00 Atorvastatin 10 Mg Tablet PO DAILY ELVIS Ceftriaxone Sodium 2 gm 10/27/25 12:00 10/28/25 08:17 Ceftriaxone 2 Gm Vial IVP 2 gm DAILY ELVIS Administration Enoxaparin Sodium 40 mg 10/28/25 09:00 10/28/25 08:17 Enoxaparin 40 Mg/0.4 Ml Syringe SUBQ 40 mg DAILY ELVIS Administration Hydromorphone HCl 0.5 mg 10/28/25 15:34 10/29/25 06:32 Hydromorphone 0.5 Mg/0.5 Ml Syringe IVP 0.5 mg Q4H PRN Administration Pain 8 to 10 Metronidazole 500 mg in 100 mls @ 100 mls/hr 10/27/25 12:00 10/29/25 04:45 Flagyl 500 Mg/100 Ml IV Infused Q8H ELVIS Infusion Lactated Ringer's 1,000 mls @ 150 mls/hr 10/29/25 08:00 Lr IV .Q6H40M ELVIS Insulin Human Lispro 1 - 5 unit 10/28/25 12:00 10/28/25 21:05 Insulin Lispro 300 Unit/3 Ml Pen SUBQ 1 unit 0800,1200,1700,2100 ELVIS Administration Protocol Losartan Potassium 25 mg 10/29/25 09:00 Losartan 50 Mg Tablet PO DAILY ELVIS Metoprolol Succinate 50 mg 10/28/25 10:00 10/28/25 20:26 Metoprolol Succinate 50 Mg Tablet PO 50 mg BID ELVIS Administration Ondansetron HCl 4 mg 10/27/25 10: Ondansetron Odt 4 Mg Tablet TL Q6HR PRN Nausea / Vomiting Pantoprazole Sodium 40 mg 10/27/25 12:00 10/29/25 06:32 Pantoprazole 40 Mg Vial IVP 40 mg QDAC ELVIS Administration Simethicone 80 mg 10/27/25 12:27 10/28/25 15:44 Simethicone Chew 80 Mg Tablet PO 80 mg 0900,1300,1800,2100 PRN Administration gas discomfort Sodium Chloride 10 ml 10/27/25 10:25 10/29/25 06:33 Sodium Chloride Flush 0.9% 10 Ml Syringe IVP 10 ml PRN PRN Administration NEEDED PER PROVIDER ORDERS Sodium Chloride 10 ml 10/27/25 17:00 10/28/25 23:54 Sodium Chloride Flush 0.9% 10 Ml Syringe IVP 10 ml 0100,0900,1700 ELVIS Administration Objective Vital Signs/Intake & Output Vital Signs: Vital Signs x48h Temp Pulse Resp BP Pulse Ox 10/29/25 04:49 36.5 C 99 16 138/83 H 92 10/29/25 01:35 94 10/29/25 00:50 37.1 C 101 H 18 145/90 H 89 L Intake & Output: Intake & Output 10/26/25 10/27/25 10/28/25 10/29/25 23:59 23:59 23:59 23:59 Intake Total 3542 / 3542 1560 / 1560 450 / 450 Output Total 1825 / 1825 1550 / 1550 300 / 300 Balance 1717 / 1717 10 150 / 150 Weight (kg) 100.698 kg 101.5 kg Lab Results 10/29/25 05:02 10/29/25 05:02 Other Labs: Lab Results x24hrs 10/29/25 10/28/25 10/28/25 Range/Units 05:02 20:40 16:43 WBC 14.4 H (4.8-10.8) x10^3/uL RBC 5.01 (4.70-6.10) 10^6/uL Hgb 14.4 (14.0-18.0) g/dL Hct 43.4 (42.0-52.0) % MCV 86.6 (80.0-94.0) fL MCH 28.7 (27.0-31.0) pg MCHC 33.2 (32.0-36.0) g/dL RDW 12.6 (12.0-15.0) % Plt Count 143 (130-450) 10^3/uL MPV 10.5 (7.4-11.4) fL Sodium 133 L (135-145) mmol/L Potassium 3.2 L (3.5-4.5) mmol/L Chloride 98 L (101-111) mmol/L Carbon Dioxide 26 (21-32) mmol/L Anion Gap 9.0 (6-13) BUN 12 (6-20) mg/dL Creatinine 0.7 (0.6-1.3) mg/dL Estimated GFR (MDRD) 113 (>89) Glucose 149 H (74-104) mg/dL POC Whole Bld Glucose 153 220 (70-100) mg/dL Calcium 8.3 L (8.5-10.3) mg/dL Magnesium 1.8 (1.7-2.3) mg/dL Total Bilirubin 1.0 (0.2-1.0) mg/dL Direct Bilirubin 0.28 H (0.03-0.18) mg/dL Indirect Bilirubin Cancelled mg/dL AST 14 (10-42) IU/L ALT 31 (10-60) IU/L Alkaline Phosphatase 66 (42-121) IU/L Total Protein 5.7 L (6.4-8.9) g/dL Albumin 3.7 (3.2-5.5) g/dL Globulin 2.0 L (2.1-4.2) g/dL Albumin/Globulin Ratio 1.9 (1.0-2.2) Urine Color Urine Clarity (CLEAR) Urine pH (5.0-7.5) PH Ur Specific [place] (1.002-1.030) Urine Protein (NEGATIVE) mg/dL Urine Glucose (UA) (NEGATIVE) mg/dL Urine Ketones (NEGATIVE) mg/dL Urine Occult Blood (NEGATIVE) Urine Nitrite (NEGATIVE) Urine Bilirubin (NEGATIVE) Urine Urobilinogen (NORMAL) E.U./dL Ur Leukocyte Esterase (NEGATIVE) Urine RBC (0-5) /HPF Urine WBC (0-3) /HPF Ur Squamous Epith Cells (<= Few) Urine Bacteria (None Seen) /HPF 10/28/25 10/28/25 10/28/25 Range/Units 11:59 09:05 05:16 WBC (4.8-10.8) x10^3/uL RBC (4.70-6.10) 10^6/uL Hgb (14.0-18.0) g/dL Hct (42.0-52.0) % MCV (80.0-94.0) fL MCH (27.0-31.0) pg MCHC (32.0-36.0) g/dL RDW (12.0-15.0) % Plt Count (130-450) 10^3/uL MPV (7.4-11.4) fL Sodium (135-145) mmol/L Potassium (3.5-4.5) mmol/L Chloride (101-111) mmol/L Carbon Dioxide (21-32) mmol/L Anion Gap (6-13) BUN (6-20) mg/dL Creatinine (0.6-1.3) mg/dL Estimated GFR (MDRD) (>89) Glucose (74-104) mg/dL POC Whole Bld Glucose 199 (70-100) mg/dL Calcium (8.5-10.3) mg/dL Magnesium (1.7-2.3) mg/dL Total Bilirubin (0.2-1.0) mg/dL Direct Bilirubin (0.03-0.18) mg/dL Indirect Bilirubin 1.0 mg/dL AST (10-42) IU/L ALT (10-60) IU/L Alkaline Phosphatase (42-121) IU/L Total Protein (6.4-8.9) g/dL Albumin (3.2-5.5) g/dL Globulin (2.1-4.2) g/dL Albumin/Globulin Ratio (1.0-2.2) Urine Color YELLOW Urine Clarity CLEAR (CLEAR) Urine pH 6.5 (5.0-7.5) PH Ur Specific [place] 1.015 (1.002-1.030) Urine Protein NEGATIVE (NEGATIVE) mg/dL Urine Glucose (UA) 250 H (NEGATIVE) mg/dL Urine Ketones 15 H (NEGATIVE) mg/dL Urine Occult Blood TRACE-INTACT (NEGATIVE) Urine Nitrite NEGATIVE (NEGATIVE) Urine Bilirubin NEGATIVE (NEGATIVE) Urine Urobilinogen 0.2 (NORMAL) (NORMAL) E.U./dL Ur Leukocyte Esterase NEGATIVE (NEGATIVE) Urine RBC 0-5 (0-5) /HPF Urine WBC 0-3 (0-3) /HPF Ur Squamous Epith Cells RARE Squamous (<= Few) Urine Bacteria Few (None Seen) /HPF Assessment/Plan Problem List (1) Acute abdominal pain: (2) Duodenitis: (3) Duodenal ulcer, perforated: (4) Pancreatitis: Qualifiers: Acute pancreatitis complication: unspecified Chronicity: acute P ancreatitis type: unspecified pancreatitis type Qualified Code(s): K85.90 - Acute pancreatitis without necrosis or infection, unspecified (5) Acute hypoxic respiratory failure: (6) Sinus tachycardia: (7) Leukocytosis: Qualifiers: Leukocytosis type: unspecified Qualified Code(s): D72.829 - Elevated white blood cell count, unspecified (8) Diabetes mellitus: Qualifiers: Diabetes mellitus type: other specified (including KWADWO) Diabetes mellitus press tender long goods insulin use: without press tender long goods use Diabetes mellitus complication status: without complication Qualified Code(s): E13.9 - Other specified diabetes mellitus without complications (9) Hypertension: Qualifiers: Hypertension type: unspecified Qualified Code(s): I10 - Essential (primary) hypertension (10) GERD (gastroesophageal reflux disease): Qualifiers: Esophagitis presence: esophagitis presence not specified Qualified Code(s): K21.9 - Gastro-esophageal reflux disease without esophagitis
[2025-10-29] MEDS ORDERED: METOCLOPRAMIDE 10 MG TABLET PO PRN (07:17)
[2025-10-29] MEDS ORDERED: ONDANSETRON 4 MG/2 ML VIAL IVP PRN (07:17)
[2025-10-29] MEDS: POTASSIUM CHLORIDE 20 MEQ/15 ML UDC PO SCH (07:47)
[2025-10-29] MEDS: LOSARTAN 50 MG TABLET PO SCH (09:13)
[2025-10-29] MEDS: ATORVASTATIN 10 MG TABLET PO SCH (09:13)
[2025-10-29] MEDS: LACTATED RINGERS 1,000 ML IV SCH (09:28)
[2025-10-29] MEDS: KETOROLAC 15 MG/ML VIAL IVP PRN (12:13)
--- NOTE | 2025-10-29 13:14 | Discharge Summary ---
"Discharge Summary Admit Date: 10/27/25 Discharge Date: 10/29/25 Discharging Provider: Valentín Gonzalez Primary Care Provider: Krystina Shearer Code Status: Attempt Resuscitation Discharge Facility Name: Home DIAGNOSES Discharge Diagnoses with Status of Each Condition: Acute pancreatitis, improved Abdominal pain, improved Acute hypoxemic respiratory failure, resolved Flash pulmonary edema, resolved T2DM, chronic, stable HTN, chronic, stable HPI History of Present Illness: Patient is a 65-year-old male with a history of [id number] diabetes mellitus, hypertension who presents with acute abdominal pain. Yesterday, he was at work at the [employer], when he felt a sharp abdominal pain. He had eaten out for lunch so he attributed initially to food poisoning. He described it as feeling like there was gas in his stomach, and he did his best to push it out. The abdominal pain progressed, and he went home early from work. He initially attributed to his GERD, which he has a longstanding history of, and takes omeprazole for. He drank some [place], and then gave himself an enema with minimal relief. He then progressed to having nausea and about 7 episodes of nonbilious, nonbloody emesis. This morning, the pain had worsened, so he came in. On admission, patient was hypertensive with blood pressure 162/128, he was saturating 94% on room air, respiratory rate was 16, he was tachycardic with heart rate up to 117, and afebrile at 97.5. Lab work was reviewedhe has a leukocytosis of 15.7. BMP was largely unremarkable. AST and ALT were mildly elevated yesterday, but are improved this morning 1 58-71, and 86-84 respectively. His bilirubin was elevated yesterday 1.6, and it is 0.9 today. UA was negative, ethyl alcohol level is negative. Triglycerides are within normal limit. Abdominal ultrasound showed no gallstones, but a mildly prominent common duct. In abdomen/pelvis CT showed acute pancreatitis, and duodenitis involving the 2nd and 3rd portions of the duodenum with a possible microperforation with a single locule of air present subadjacent to the second portion of the duodenum. He was admitted for the above. General surgery was consulted. Past medical history includes hypertension, diabetes, GERD. Home medications include omeprazole, Jardiance, metformin, and 2 antihypertensives that patient is unsure of. Patient is allergic to morphine, aspirin, penicillin, unclear reaction. Surgical history includes appendectomy as a child. He denies any alcohol, tobacco, recreational drug use. 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 He works in [employer] at the [employer]. He lives with his and 2 kids. He is normally active. Patient would like to be full code, with continued aggressive medical management at this time. CONSULTS | PROCEDURES Consultations: General surgery Procedures: CT abdomen pelvis 10/27 Ultrasound abdomen 10/27 CXR 10/27 CXR 10/28 HOSPITAL COURSE Hospital Course: Patient is a 65-year-old male who presented with acute abdominal pain. His lipase was initially profoundly elevated at 6000. This improved over the ensuing 2 days with IV fluids. On 10/27, patient had acute hypoxemic respiratory failure requiring supplemental oxygen via NC. He was found to have pulmonary edema which improved with diuresis. Fluids were stopped at this time, and the patient was encouraged to consume clear liquids. He was able to do that somewhat. Overnight on 10/28, he had worsened abdominal pain which was waxing and waning. He remained hemodynamically stable. His labs showed a downtrending lipase in the morning of 10/29. He was resumed on fluids briefly, but actually had complete resolution of his pain and was able to tolerate a normal breakfast. This was inconsistent with ongoing pancreatitis. His abdomen was soft and nontender to palpation. He did have some concern on his initial imaging for duodenitis with a single locule of air subjacent to second portion of the duodenum. Surgery was able to evaluate the patient, and did not feel that any acute intervention was warranted. They believe it may represent a forme fruste perforation if it is a perforation at all. Patient was seen multiple times on day of discharge, most recently after lunch. He received nonsteroidal anti-inflammatory prior to his lunch, and was able to eat most of his main course. He has no nausea. His pain is improving. We did remind him again about a low-fat diet, as his lunch of choice was a cheeseburger. He stated good understanding. He feels safe to discharge home. I recommend ongoing oral Tylenol for the next few days scheduled. I think a limited course of nonsteroidals is reasonable. Finally I am sending him with some narcotics for breakthrough pain. He has not been having any nausea or vomiting. He declined antiemetics. With regard to etiology of his pancreatitis, he had no gallstones seen on his ultrasound of his gallbladder. He has a mildly dilated common bile duct which may represent a recently passed stone, but felt unlikely based on general surgery's evaluation. May be related to either his statin or SGLT2i. I have advised him to hold his SGLT2i for at least the next week as he improves. I have encouraged him to follow-up with his primary care doctor regarding his diabetes management. ALLERGIES Allergies Allergy/AdvReac Type Severity Reaction Status Date / Time aspirin Allergy swelling Verified 10/26/25 21:03 morphine Allergy Itching Verified 10/26/25 21:03 Penicillins Allergy fever Verified 10/26/25 21:03 lactose AdvReac Intermediate nausea Verified 10/29/25 01:42 lisinopril AdvReac Mild Unknown Verified 10/29/25 01:42 tramadol AdvReac Unknown Verified 10/29/25 01:42 MEDICATIONS Ambulatory Orders Medication Instructions Recorded Confirmed albuterol 90 mcg/actuation aerosol 90 mcg inhalation T ID-QID PRN 10/27/25 10/27/25 inhaler Asthma atorvastatin 10 mg tablet (Lipitor) 10 mg PO DAILY 10/27/25 cholecalciferol (vitamin D3) 25 25 mcg PO DAILY 10/27/25 mcg (1,000 unit) capsule empagliflozin 25 mg tablet 25 mg PO DAILY 10/27/25 Held on 10/29/25. Instructions: Resume on 11/08/25. Get an appointment with your primary care doctor to discuss whether this is still a safe medicine for you. lidocaine 5 % topical ointment 1 applic topical BID WI N pain 10/27/25 10/27/25 losartan 25 mg tablet 25 mg PO DAILY 10/27/2510/05 magnesium gluconate 12.5 mg 12.5 mg PO QPM PRN cramps 10/27/25 10/27/25 magnesium (250 mg) tablet meloxicam 15 mg tablet 15 mg PO DAILY 10/27/2510/05 Held on 10/29/25. Instructions: Resume on 11/08/25. Hold off while treating your pancreatitis, follow-up with your PCP about whether this is a good medicine for you moving forward. metformin 1,000 mg tablet 1,000 mg PO BID 10/27/25 metoprolol succinate 100 mg 50 mg PO BID PRN HR<65 or BP<100 10/27/25 10/27/25 tablet,extended release 24 hr omeprazole 20 mg capsule,delayed 20 mg PO QPM 10/27/25 10/27/25 release acetaminophen 325 mg tablet 1,000 mg (3.0769 x 325 mg) PO TID 10/29/25 #100 tabs ibuprofen 400 mg tablet 400 mg PO Q8H PRN pain #30 t abs 10/29/25 oxycodone 5 mg tablet 5 mg PO Q4H PRN pain #14 tab s 10/29/25 PHYSICAL EXAM AT DISCHARGE Vital Signs: Vital Signs x48h Temp Pulse Resp BP Pulse Ox 10/29/25 07:27 36.5 C 93 16 129/86 96 LABS 10/29/25 05:02 10/29/25 05:02 DIAGNOSTIC IMAGING Diagnostic Imaging Results: Final report reviewed Diagnostic Imaging Results Comments: Abdomen ultrasound 10/27: No gallstones noted, mild prominent common duct. Abdomen/pelvis CT 10/27: Mild changes of acute pancreatitis Duodenitis involving the 2nd and 3rd portions of the duodenum, potential secondary to pancreatitis Possible microperforation with single locule of air present subjacent to the second portion of the duodenum in the region of the uncinate process of the pancreas. CXR 10/27: Bilateral diffuse airspace opacities with trace bilateral pleural effusions. Findings are concerning for pulmonary edema versus multifocal pneumonia. CXR 10/28: Mild improved aeration compared to prior Low lung volumes with streaky opacities seen within the mid and lower lungs. FOLLOW UP Follow Up: Follow-up with PCP in 1 to 2 weeks. TIME SPENT Time Spent in Discharge (Minutes): 44 Discharge Plan Discharge Patient Disposition: 01 Home, Self Care Condition: Stable Medically Cleared Date:: 10/29/25 Prescriptions: New acetaminophen 325 mg Tablet 1,000 mg PO TID Qty: 100 0RF oxycodone 5 mg tablet 5 mg PO Q4H PRN (Reason: pain) Qty: 14 0RF ibuprofen 400 mg tablet 400 mg PO Q8H PRN (Reason: pain) Qty: 30 0RF Continued albuterol 90 mcg/actuation aerosol 90 mcg inhalation TID-QID PRN (Reason: Asthma) atorvastatin [Lipitor] 10 mg tablet 10 mg PO DAILY cholecalciferol (vitamin D3) 25 mcg (1,000 unit) capsule 25 mcg PO DAILY lidocaine 5 % ointment 1 applic topical BID PRN (Reason: pain) losartan 25 mg tablet 25 mg PO DAILY omeprazole 20 mg capsule,delayed release(DR/EC) 20 mg PO QPM magnesium gluconate 12.5 mg magne- sium (250 mg) tablet 12.5 mg PO QPM PRN (Reason: cramps) metformin 1,000 mg tablet 1,000 mg PO BID metoprolol succinate 100 mg tablet extended release 24 hr 50 mg PO BID PRN (Reason: HR<65 or BP<100) Held meloxicam 15 mg tablet 15 mg PO DAILY Hold Instructions: Resume on 11/08/25. Hold off while treating your pancreatitis, follow-up with your PCP about whether this is a good medicine for you moving forward. empagliflozin 25 mg tablet 25 mg PO DAILY Hold Instructions: Resume on 11/08/25. Get an appointment with your primary care doctor to discuss whether this is still a safe medicine for you. Activity Restrictions: No Restrictions Diet: Regular Health Concerns: You were hospitalized for acute pancreatitis, which is inflammation of the pancreas. The pancreas is an organ that helps with digestion and blood sugar control. With proper care and follow-up, most people recover completely from acute pancreatitis. Unclear what caused your pancreatitis. Common triggers include alcohol, gallstones, and high cholesterol, specifically triglycerides in the blood. Your triglycerides are normal, and you do not have common risk factors of alcohol use. It is possible that you passed a gallstone. Additionally, Jardiance which is a medicine that you are taking can at times cause pancreatitis. Diet and Eating - You may resume eating a regular diet as tolerated. Start with small, frequent meals. - Choose low-fat foods initially (lean proteins, fruits, vegetables, whole grains). - Avoid high-fat, fried, or greasy foods for the first few weeks. - Stay well-hydrated by drinking plenty of water throughout the day. - Completely avoid alcohol, as it can trigger another episode of pancreatitis. Activity - Rest as needed, but gradually increase your activity level as you feel better. - Avoid strenuous exercise for the first 1-2 weeks. - Listen to your body and don't push yourself too hard. Medications For your pain control I recommend the following regimen: * Take 1000 mg (2 extra strength) Tylenol 3 times a day regardless of your pain level * You can take ibuprofen intermittently 400 mg every 8 hours as needed * For any breakthrough pain beyond that, I am sending you with some narcotics, oxycodone 5 mg. Limit your use of this to least dose needed. IMPORTANT - HOLD JARDIANCE (Empagliflozin): * Do NOT restart your Jardiance (empagliflozin) at this time. I am cautiously recommending that you can resume this on November 08, but I would encourage you to see your primary care doctor as soon as possible to discuss this medication. * This medication has been associated with pancreatitis and should be held until you see your doctor. * Your doctor will discuss alternative diabetes medications with you at your follow-up appointment. Cotinue all other medications as prescribed unless instructed otherwise. Warning Signs - When to Seek Immediate Medical Attention Call 911 or go to the emergency department if you experience: - Severe abdominal pain that is getting worse or not improving - Persistent vomiting and inability to keep down food or liquids - Fever over 101F (38.3C) - Yellowing of your skin or eyes (jaundice) - Severe weakness, dizziness, or confusion - Rapid breathing or shortness of breath Follow-Up Care - Schedule an appointment with your primary care doctor or search marketing specialist within 1-2 weeks of discharge. - The general surgeon during this hospitalization does not believe that gallstones contributed to your pancreatitis specifically. - Your doctor will need to review your diabetes medications and determine the best treatment plan going forward. - Blood work may be needed at your follow-up visit. Additional Important Information - Some people develop diabetes or digestive problems after pancreatitis. Report any new symptoms to your doctor. - Smoking cessation is strongly recommended if you smoke. Print Language: German Patient Instructions: Pancreatitis Acute Dc Stand Alone Forms: SBIRT Vitals documented within 30 minutes of discharge?: Yes"
[2025-10-29 14:12] VITALS: BP 128/82; TEMP 97.9; O2SAT 97
--- NOTE | 2025-11-03 18:06 | ED Physician Documentation ---
ED Addendum Addendum Addendum: patient was to be admitted overnight but [facility]ospitalist did not return call. I contacted Day Hospitalist at 7 am and they will admit the pt. Discharge Plan Discharge Patient Disposition: 66 [facility] DC/Xfer Condition: Stable Clinical Impression: Pancreatitis Interventions: ED Transfer Assessment Last Done: 10/27/25 10:10 Vitals documented within 30 minutes of discharge?: Yes
== END 2025-10-29 14:12 | disposition home or self-care (01) | DRG 438 ==
LOC: ED 20:55 → SUATTDRO 10-27 09:14 → MS2 10-27 09:14
PROVIDERS: ADMIT Internal Medicine; ATTEND Student in an Organized Health Care Education/Training Program